=== PATIENT | female | born 2005 | race Caucasian/White ===

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

== ENCOUNTER 2023-07-03 15:37 | Emergency (ER) | payer OTHER, SELFPAY ==
[2023-07-03 15:39] VITALS: BP 115/74; PULSE 78; RESP 16; TEMP 36; O2SAT 99; BMI 19.9
--- NOTE | 2023-07-03 15:49 | RAD_ITS ---
INDICATION: injury EXAMINATION/TECHNIQUE: X-RAY - RIGHT XR Tibia/Fibula 2 Views COMPARISON: None. FINDINGS: No acute fracture or malalignment. No blastic or lytic lesions. No degenerative changes are seen. The soft tissues are unremarkable. RAD/Tibia & Fibula 2 Views IMPRESSION: No acute radiographic abnormalities. Electronically Signed: Marquise Garcia MD at 17:24 EST ,
--- NOTE | 2023-07-03 15:50 | RAD_ITS ---
INDICATION: injury EXAMINATION/TECHNIQUE: X-RAY - LEFT XR Ankle Min 3 Views COMPARISON: None. FINDINGS: No acute fracture or malalignment. No blastic or lytic lesions. No degenerative changes are seen. The soft tissues are unremarkable. RAD/Ankle min 3 Views IMPRESSION: No acute radiographic abnormalities. Electronically Signed: Marquise Garcai MD at 17:24 EST ,
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
--- OUTSIDE RECORDS SUMMARY | 2023-07-03 16:14 | XMS RPT_ITS | CCD ---
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 encounter (statuses as of 11/10/2021) [place] [address]22-2014 History of Past illness Narrative* Problem Noted Date Resolved Date UTI (lower urinary tract infection) 08/15/2013 03/05/2016 Failure to thrive in childhood 02/18/200504/29/2013 documented as of this encounter (statuses as of 11/27/2021) [place] [address]2014 History of Past illness Narrative* Problem Noted Date Resolved Date UTI (lower urinary tract infection) 08/15/2013 03/05/2016 Failure to thrive in childhood 02/18/200504/29/2013 documented as of this encounter (statuses as of 01/01/2022) [address]22-2014 History of Past illness Narrative* Problem Noted Date Resolved Date UTI (lower urinary tract infection) 08/15/2013 03/05/2016 Failure to thrive in childhood 02/18/2005 1 04/29/2013 documented as of this encounter (statuses as of 01/06/2022) [address]22-2014 History of Past illness Narrative* Problem Noted Date Resolved Date UTI (lower urinary tract infection) 08/15/2013 03/05/2016 Failure to thrive in childhood 02/18/2005 1 04/29/2013 documented as of this encounter (statuses as of 01/27/2022) [address]22-2014 History of Past illness Narrative* Problem Noted Date Resolved Date UTI (lower urinary tract infection) 08/15/2013 03/05/2016 Failure to thrive in childhood 02/18/2005 1 04/29/2013 documented as of this encounter (statuses as of 02/26/2022) [address]22-2014 History of Past illness Narrative* Problem Noted Date Resolved Date UTI (lower urinary tract infection) 08/15/2013 03/05/2016 Failure to thrive in childhood 02/18/200504/29/2013 documented as of this encounter (statuses as of 02/26/2022) [address]22-2014 History of Past illness Narrative* Problem Noted Date Resolved Date UTI (lower urinary tract infection) 08/15/2013 03/05/2016 Failure to thrive in childhood 02/18/200504/29/2013 documented as of this encounter (statuses as of 05/04/2022) [address]22-2014 History of Past illness Narrative* Problem Noted Date Resolved Date UTI (lower urinary tract infection) 08/15/2013 03/05/2016 Failure to thrive in childhood 02/18/200504/29/2013 documented as of this encounter (statuses as of 06/26/2022) [address]22-2014 History of Past illness Narrative* Problem Noted Date Resolved Date UTI (lower urinary tract infection) 08/15/2013 03/05/2016 Failure to thrive in childhood 02/18/200504/29/2013 documented as of this encounter (statuses as of 2022) [address]22-2014 History of Past illness Narrative* Problem Noted Date Resolved Date UTI (lower urinary tract infection) 08/15/2013 03/05/2016 Failure to thrive in childhood 02/18/200504/29/2013 documented as of this encounter (statuses as of 08/13/2022) [address]22-2014 History of Past illness Narrative* Problem Noted Date Resolved Date UTI (lower urinary tract infection) 08/15/2013 03/05/2016 Failure to thrive in childhood 02/18/2005 1 04/29/2013 documented as of this encounter (statuses as of 09/30/2022) [address]22-2014 History of Past illness Narrative* Problem Noted Date Diagnosed Date Resolved Date UTI (lower urinary tract infection) 08/15/2013 03/05/2016 Failure to thrive in childhood 02/18/2005 02/27/2014 documented as of this encounter (statuses as of 04/06/2023) [address]22-2014 History of Past illness Narrative* Problem Noted Date Diagnosed Date Resolved Date UTI (lower urinary tract infection) 08/15/2013 03/05/2016 Failure to thrive in childhood 02/18/2005 02/27/2014 documented as of this encounter (statuses as of 06/03/2023) [address]22-2014 History of Past illness Narrative* Problem Noted Date Diagnosed Date Resolved Date UTI (lower urinary tract infection) 08/15/2013 03/05/2016 Failure to thrive in childhood 02/18/2005 02/27/2014 documented as of this encounter (statuses as of 06/16/2023) [address]22-2014 History of Past illness Narrative* Problem Noted Date Diagnosed Date Resolved Date UTI (lower urinary tract infection) 08/15/2013 03/05/2016 Failure to thrive in childhood 02/18/2005 02/27/2014 documented as of this encounter (statuses as of 06/16/2023) [address]22-2014 History of Past illness Narrative* Problem Noted Date Diagnosed Date Resolved Date UTI (lower urinary tract infection) 08/15/2013 03/05/2016 Failure to thrive in childhood 02/18/2005 02/27/2014 documented as of this encounter (statuses as of 06/24/2023) [facility] No data available for this section [facility] Evaluation note* Diagnosis Patellar instability of right knee- Primary Other joint derangement, not elsewhere classified, lower leg Altered gait Abnormality of gait H/O fracture of patella Personal history of traumatic fracture Disorder of bone Disorder of bone and cartilage, unspecified Chronic pain of right knee Swelling of joint of right knee Effusion of lower leg joint [facility] Disorder of bone Disorder of bone and cartilage, unspecified Patellar instability of right knee Other joint derangement, not elsewhere classified, lower leg Altered gait Abnormality of gait H/O fracture of patella Personal history of traumatic fracture Chronic pain of right knee Swelling of joint of right knee Effusion of lower leg joint [facility] Diagnosis Patellar instability of right knee- Primary Other joint derangement, not elsewhere classified, lower leg Altered gait Abnormality of gait H/O fracture of patella Personal history of traumatic fracture [facility]* Diagnosis Attention deficit hyperactivity disorder (ADHD), combined type [facility] Diagnosis Depression with anxiety- Primary Dysthymic disorder Attention deficit hyperactivity disorder (ADHD), combined type Chondromalacia of right patella Chondromalacia of patella [facility] Diagnosis Depression with anxiety- Primary Dysthymic disorder Attention deficit hyperactivity disorder (ADHD), combined type Chondromalacia of right patella Chondromalacia of patella Severe menstrual cramps Menorrhagia with irregular cycle Excessive or frequent menstruation [facility] Diagnosis Dysmenorrhea- Primary General counseling and advice for contraceptive management Other general counseling and advice for contraceptive management Screen for STD (sexually transmitted disease) Screening examination for venereal disease [facility] Diagnosis Insertion of implantable subdermal contraceptive- Primary Screening for STD (sexually transmitted disease) Screening examination for venereal disease [facility] Diagnosis Atypical nevus of right thigh- Primary Superficial spreading melanoma (HCC) Melanoma of skin, site unspecified [facility] Diagnosis Depression with anxiety- Primary Dysthymic disorder Attention deficit hyperactivity disorder (ADHD), combined type Superficial spreading melanoma (HCC) Melanoma of skin, site unspecified [facility]* Diagnosis Attention deficit hyperactivity disorder (ADHD), combined type [facility]* Diagnosis Sore throat- Primary Acute pharyngitis documented in this encounter [facility] note* Diagnosis Sore throat- Primary Acute pharyngitis Fatigue, unspecified type Other non-recurrent acute nonsuppurative otitis media of left ear documented in this encounter [facility] note* Diagnosis Depression with anxiety Dysthymic disorder documented in this encounter [facility] note* Diagnosis Depression with anxiety- Primary Dysthymic disorder Cyst near coccyx Pilonidal cyst without mention of abscess documented in this encounter [facility] note* Diagnosis Depression with anxiety- Primary Dysthymic disorder Major depressive disorder with current active episode, unspecified depression episode severity, unspecified whether recurrent Attention deficit hyperactivity disorder (ADHD), combined type documented in this encounter [facility] note* Diagnosis Attention deficit hyperactivity disorder (ADHD), combined type documented in this encounter [facility] note* Diagnosis Depression with anxiety Dysthymic disorder Major depressive disorder with current active episode, unspecified depression episode severity, unspecified whether recurrent documented in this encounter [facility] Discharge instructions No data available for this section [facility] Reason for referral (narrative)* Outpatient Procedure (Routine) - Pending Review Specialty Diagnoses / Procedures Referred By Trav ponce Referred To Contact [facility] Diagnoses Dysmenorrhea General counseling and advice for contraceptive management Procedures NEXPLANON INSERTION ETONOGESTREL IMPLANT SYSTEM INSERT DRUG IMPLANT DEVICE Karen Young APRN.CNP [address] [place] [address] [place] [address] Referral ID Status Reason Start Date Expiration Date Visits Requested Visits Authorized [id number] Pending Review Auto-Generat ed Referral 01/06/2022 01/06/2023 1 1 [facility] Outpatient Procedure (Routine) - Pending Review Specialty Diagnoses / Procedures Referred By Trav ponce Referred To Contact [facility] Diagnoses Insertion of implantable subdermal contraceptive Procedures NEXPLANON INSERTION ETONOGESTREL IMPLANT SYSTEM INSERT DRUG IMPLANT DEVICE Karen Young APRN.CNP [address] [place] [address] [facility] [address] [place] [address] Referral ID Status Reason Start Date Expiration Date Visits Requested Visits Authorized [id number] Pending Review Auto-Generat ed Referral 01/27/2022 01/27/2023 1 1 [facility] for visit Narrative* Outpatient Procedure (Routine) - Closed Specialty Diagnoses / Procedures Referred By Trav ponce Referred To Contact [facility] Diagnoses Dysmenorrhea General counseling and advice for contraceptive management Encounter for initial prescription of implantable subdermal contraceptive Encounter for surveillance of implantable subdermal contraceptive Procedures NEXPLANON INSERTION ETONOGESTREL IMPLANT SYSTEM INSERT DRUG IMPLANT DEVICE REMOVAL NON-BIODEGRADABLE DRUG DELIVERY IMPLANT Karen Young APRN.POWERHOUSE MECHANIC HELPER [address] [place] [address] [facility] [address] [place] [address] Referral ID Status Reason Start Date Expiration Date V isits Requested Visits Authorized [id number] Closed Auto-Generate d Referral 01/14/2022 04/25/2022 1 1 [facility] Reason for Referral Specialty Diagnoses / Procedures Referred By Trav ponce Referred To Contact [facility] Diagnoses Disorder of bone Patellar instability of right knee Altered gait H/O fracture of patella Chronic pain of right knee Swelling of joint of right knee Procedures MRI KNEE WO IVCON RT MRI ANY JT LOWER EXTREM W/O CONTRAST MATRL Oumou Laureano APRN.POWERHOUSE MECHANIC HELPER [address] [place] [address] [facility] Referral ID Status Reason Start Date Expiration Date V isits Requested Visits Authorized [id number] Closed Auto-Generate d Referral 09/11/2021 10/11/2022 1 1 Specialty Diagnoses / Procedures Referred By Trav ponce Referred To Contact [facility] Diagnoses Disorder of bone Patellar instability of right knee Altered gait H/O fracture of patella Chronic pain of right knee Swelling of joint of right knee Procedures CONSULT TO PHYSICAL THERAPY PHYSICAL THERAPY EVALUATION HIGH COMPLEX 45 MINS Oumou Laureano APRN.VERÓNICA [address] [place] [address] [facility] [address] [address] Referral ID Status Reason Start Date Expiration Date Visits Requested Visits Authorized [id number] Authorized Auto-Generat ed Referral 09/11/2021 04/25/2022 30 30 Specialty Diagnoses / Procedures Referred By Contac t Referred To Contact XR IMAGING Diagnoses Disorder of bone Patellar instability of right knee Altered gait H/O fracture of patella Chronic pain of right knee Swelling of joint of right knee Procedures XR KNEE INJURY 4V AP/LAT/OBLS RIGHT RADIOLOGIC EXAM KNEE COMPLETE 4/MORE VIEWS Oumou Laureano APRN.POWERHOUSE MECHANIC HELPER [address] [place] [address] Xr Imaging Referral ID Status Reason Start Date Expiration Date V isits Requested Visits Authorized [id number] Closed Auto-Generate d Referral 09/11/2021 10/11/2022 1 1 Specialty Diagnoses / Procedures Referred By Contac t Referred To Contact Orthopedics Diagnoses Patellar instability of right knee Altered gait H/O fracture of patella Procedures CONSULT TO ORTHOPAEDICS OFFICE/OUTPATIENT [facility] 60-74 MINUTES Yaw Garcia, SLURRY WORKER.POWERHOUSE MECHANIC HELPER [address] [place] [address] Referral ID Status Reason Start Date Expiration Date Visits Requested Visits Authorized [id number] Pending Review PCP Requested Referral 09/17/2021 09/17/2022 1 1 Specialty Diagnoses / Procedures Referred By Contac t Referred To Contact Gynecology Diagnoses Severe menstrual cramps Menorrhagia with irregular cycle Procedures CONSULT TO GYNECOLOGY OFFICE/OUTPATIENT [facility] MDM 60-74 MINUTES Oumou Laureano, SLURRY WORKER.POWERHOUSE MECHANIC HELPER [address] [place] [address] Referral ID Status Reason Start Date Expiration Date Visits Requested Visits Authorized [id number] Pending Review PCP Requested Referral Auto-Generate d Referral 12/25/2021 12/25/2022 1 1 Specialty Diagnoses / Procedures Referred By Contac t Referred To Contact Diagnoses Atypical nevus of right thigh Superficial spreading melanoma (HCC) Procedures REFERRAL DERMATOLOGY SURGERY OFFICE/OUTPATIENT [facility] MDM 60-[address] MINUT[address] [place], DO [address] [place] [address] Referral ID Status Reason Start Date Expiration Date Visits Requested Visits Authorized [id number] Pending Review PCP Requested Referral 02/25/2022 02/25/2023 1 1 Medications Administered Section Inactive Administered Medications - up to 3 most recent administrations Medication Order MAR Action Action Date Dose Rate Site etonogestrel subdermal implant 68 mg (NEXPLANON) 68 mg, SUBDERMAL, ONCE (UP TO 30 DAYS AMB), 1 dose, On Wed01/27/22 at 1000, Hazardous Potential Reproductive Risk Drug: Use appropriate PPE. Must be inserted subdermally in the upper arm by a trained healthcare provider. Given 01/27/2022 9:44 AM EDT 68 mg Arm, Left Summary Purpose Family History No Family History Records FoundNo Family History Records Found Advance Directives No Advanced Directives Records FoundNo Advanced Directives Records Found Additional Source Comments Source Comments (unrecognize d section and content) In the event this informatio n is protected by the Federal Confidentiality of Alcohol and Drug Abuse Patient Records regulations: The Federal rules restrict any use of the information to criminally investigate or prosecute any alcohol or drug abuse patient.[facility] the event this information is protected by the Federal Confidentiality of Alcohol and Drug Abuse Patient Records regulations: The Federal rules restrict any use of the information to criminally investigate or prosecute any alcohol or drug abuse patient.[facility] the event this information is protected by the Federal Confidentiality of Alcohol and Drug Abuse Patient Records regulations: The Federal rules restrict any use of the information to criminally investigate or prosecute any alcohol or drug abuse patient.[facility] the event this information is protected by the Federal Confidentiality of Alcohol and Drug Abuse Patient Records regulations: The Federal rules restrict any use of the information to criminally investigate or prosecute any alcohol or drug abuse patient.[facility] the event this information is protected by the Federal Confidentiality of Alcohol and Drug Abuse Patient Records regulations: The Federal rules restrict any use of the information to criminally investigate or prosecute any alcohol or drug abuse patient.[facility] the event this information is protected by the Federal Confidentiality of Alcohol and Drug Abuse Patient Records regulations: The Federal rules restrict any use of the information to criminally investigate or prosecute any alcohol or drug abuse patient.[facility] the event this information is protected by the Federal Confidentiality of Alcohol and Drug Abuse Patient Records regulations: The Federal rules restrict any use of the information to criminally investigate or prosecute any alcohol or drug abuse patient.[facility] the event this information is protected by the Federal Confidentiality of Alcohol and Drug Abuse Patient Records regulations: The Federal rules restrict any use of the information to criminally investigate or prosecute any alcohol or drug abuse patient.[facility] the event this information is protected by the Federal Confidentiality of Alcohol and Drug Abuse Patient Records regulations: The Federal rules restrict any use of the information to criminally investigate or prosecute any alcohol or drug abuse patient.[facility] the event this information is protected by the Federal Confidentiality of Alcohol and Drug Abuse Patient Records regulations: The Federal rules restrict any use of the information to criminally investigate or prosecute any alcohol or drug abuse patient.[facility] the event this information is protected by the Federal Confidentiality of Alcohol and Drug Abuse Patient Records regulations: The Federal rules restrict any use of the information to criminally investigate or prosecute any alcohol or drug abuse patient.[facility] the event this information is protected by the Federal Confidentiality of Alcohol and Drug Abuse Patient Records regulations: The Federal rules restrict any use of the information to criminally investigate or prosecute any alcohol or drug abuse patient.[facility] the event this information is protected by the Federal Confidentiality of Alcohol and Drug Abuse Patient Records regulations: The Federal rules restrict any use of the information to criminally investigate or prosecute any alcohol or drug abuse patient.[facility] the event this information is protected by the Federal Confidentiality of Alcohol and Drug Abuse Patient Records regulations: The Federal rules restrict any use of the information to criminally investigate or prosecute any alcohol or drug abuse patient.[facility] the event this information is protected by the Federal Confidentiality of Alcohol and Drug Abuse Patient Records regulations: The Federal rules restrict any use of the information to criminally investigate or prosecute any alcohol or drug abuse patient.[facility] the event this information is protected by the Federal Confidentiality of Alcohol and Drug Abuse Patient Records regulations: The Federal rules restrict any use of the information to criminally investigate or prosecute any alcohol or drug abuse patient.[facility] Center[facility] the event this information is protected by the Federal Confidentiality of Alcohol and Drug Abuse Patient Records regulations: The Federal rules restrict any use of the information to criminally investigate or prosecute any alcohol or drug abuse patient.[facility] Center[facility] the event this information is protected by the Federal Confidentiality of Alcohol and Drug Abuse Patient Records regulations: The Federal rules restrict any use of the information to criminally investigate or prosecute any alcohol or drug abuse patient.[facility] the event this information is protected by the Federal Confidentiality of Alcohol and Drug Abuse Patient Records regulations: The Federal rules restrict any use of the information to criminally investigate or prosecute any alcohol or drug abuse patient.[facility] the event this information is protected by the Federal Confidentiality of Alcohol and Drug Abuse Patient Records regulations: The Federal rules restrict any use of the information to criminally investigate or prosecute any alcohol or drug abuse patient.[facility] Reason for Visit (unrecogniz ed section and content) Specialty Diagnoses / Procedures Referred By Trav t Referred To Contact MR IMAGING Diagnoses Disorder of bone Patellar instability of right knee Altered gait H/O fracture of patella Chronic pain of right knee Swelling of joint of right knee Procedures MRI KNEE WO IVCON RT MRI ANY JT LOWER EXTREM W/O CONTRAST EDIEL Oumou Laureano, CARLOS ALBERTO.POWERHOUSE MECHANIC HELPER [address] [place] [address] Mr Imaging Referral ID Status Reason Start Date Expiration Date V isits Requested Visits Authorized [id number] Closed Auto-Generate d Referral 09/11/2021 10/11/2022 1 1 Reason Comments Results Reason Onset Date Comments Refill Request 11/10/2021 Reason Comments Medication Follow-up Reason Comments Medication Follow-up Reason Comments Menstrual Problem Specialty Diagnoses / Procedures Referred By Trav ponce Referred To Contact Gynecology Diagnoses Severe menstrual cramps Menorrhagia with irregular cycle Procedures CONSULT TO GYNECOLOGY OFFICE/OUTPATIENT NEW HIGH MDM 60-74 MINUTES Oumou Laureano, SLURRY WORKER.POWERHOUSE MECHANIC HELPER [address] [place] [address] Referral ID Status Reason Start Date Expiration Date Visits Requested Visits Authorized [id number] Pending Review PCP Requested Referral Auto-Generate d Referral 12/25/2021 12/25/2022 1 1 Reason Comments Orders Reason Comments Sore Throat KIM x2 days Reason Comments Sore Throat Had a strep test ran Wednesday at urgent care negative 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 White spots on tonsils glands swollen no fever or chills, Reason Comments Question Reason Comments Med Change Request Reason Comments Cyst On tailbone Reason Comments Depression Reason Comments Medication Problem Care Teams (unrecognized sec tion and content) [employer] Relationship Specialty Start Date End Date Oumou Laureano, SLURRY WORKER.POWERHOUSE MECHANIC HELPER [address] [place] [address] PCP - General Family Practice 01/27/21 [employer] Relationship Specialty Start Date End Date Oumou Laureano, SLURRY WORKER.POWERHOUSE MECHANIC HELPER [address] [place] [address] PCP - General Family Practice 01/27/21 [employer] Relationship Specialty Start Date End Date Oumou Laureano, SLURRY WORKER.POWERHOUSE MECHANIC HELPER [address] [place] [address] PCP - General Family Practice 01/27/21 [employer] Relationship Specialty Start Date End Date Oumou Laureano, SLURRY WORKER.POWERHOUSE MECHANIC HELPER [address] [place] [address] PCP - General Family Practice 01/27/21 [employer] Relationship Specialty Start Date End Date Oumou Laureano, SLURRY WORKER.POWERHOUSE MECHANIC HELPER [address] [place] [address] PCP - General Family Practice 01/27/21 [employer] Relationship Specialty Start Date End Date GeorgiOumou, SLURRY WORKER.POWERHOUSE MECHANIC HELPER [address] [place] [address] PCP - General Family Practice 01/27/21 [employer] Relationship Specialty Start Date End Date GeorgiOumou, SLURRY WORKER.POWERHOUSE MECHANIC HELPER [address] [place] [address] PCP - General Family Medicine 01/27/21 [employer] Relationship Specialty Start Date End Date GeorgiOumou, SLURRY WORKER.POWERHOUSE MECHANIC HELPER [address] [place] [address] PCP - General Family Medicine 01/27/21 [employer] Relationship Specialty Start Date End Date GeorgiOumou, SLURRY WORKER.POWERHOUSE MECHANIC HELPER [address] [place] [address] PCP - General Family Medicine 01/27/21 [employer] Relationship Specialty Start Date End Date Oumou, SLURRY WORKER.POWERHOUSE MECHANIC HELPER [address] [place] [address] PCP - General Family Medicine 01/27/21 [employer] Relationship Specialty Start Date End Date GeogriOumou, SLURRY WORKER.POWERHOUSE MECHANIC HELPER [address] [place] [address] PCP - General Family Medicine 01/27/21 [employer] Relationship Specialty Start Date End Date GeorgiOumou, SLURRY WORKER.POWERHOUSE MECHANIC HELPER [address] [place] [address] PCP - General Family Medicine 01/27/21 [employer] Relationship Specialty Start Date End Date GeorgiOumou, SLURRY WORKER.POWERHOUSE MECHANIC HELPER [address] [place] [address] PCP - General Family Medicine 01/27/21 [employer] Relationship Specialty Start Date End Date Oumou Laureano, SLURRY WORKER.POWERHOUSE MECHANIC HELPER [address] [place], [place] [id number] PCP - General Family Medicine 01/27/21 [employer] Relationship Specialty Start Date End Date Georig Oumou, SLURRY WORKER.POWERHOUSE MECHANIC HELPER [address] [place], [place] [address] PCP - General Family Medicine 01/27/21 [employer] Relationship Specialty Start Date End Date GeorgiOumou, SLURRY WORKER.POWERHOUSE MECHANIC HELPER [address] [place], [place] [address] PCP - General Family Medicine 01/27/21 Care Team (unrecognized sect ion and content) Care Team Personnel Name: LAKE FABIAN DO Member Role: Primary Care Physician Address: Address: [address] [place] [address]- Care Team Related Persons Name: ELIZABETH JULIEN Address: [address] [place] [address] Name: ELIZABETH JULIEN Address: [place] [address] INFORMATION SOURCE (unrecogn ized section and content) DATE CREATED AUTHOR AUTHOR'S POLINA ATION 06/23/2023 [facility] FOR RECORDS PERTAINING TO PATIENTS WHO ARE OR HAVE BEEN ENROLLED IN A CHEMICAL DEPENDENCY/SUBSTANCEABUSE PROGRAM, SOME INFORMATION MAY BE OMITTED. This clinical summary was aggregated from multiple sources. Caution should be exercised in using it in the provision of clinical care. This summary normalizes information from multiple sources, and as a consequence, information in this document may materially change the coding, format and clinical context of patient data. In addition, data may be omitted in some cases. CLINICAL DECISIONS SHOULD BE BASED ON THE PRIMARY CLINICAL RECORDS. [employer] provides no warranty or guarantee of the accuracy or completeness of information in this document.
[2023-07-03] MEDS: Naproxen 500 MG Tablet PO (17:21)
[2023-07-03 17:23] VITALS: BP 115/74; PULSE 78; RESP 16; TEMP 36; O2SAT 99
== END 2023-07-03 17:24 | disposition home or self-care (01) ==
PROVIDERS: Emergency Provider Emergency Medicine; PCP Nurse Practitioner Family; Visit Provider Emergency Medicine
DX: S93.401A Sprain of unspecified ligament of right ankle, initial encounter (principal); S93.402A Sprain of unspecified ligament of left ankle, initial encounter; V48.4XXA Person boarding or alighting a car injured in noncollision transport accident, initial encounter; Z79.899 Other long term (current) drug therapy
CPT/HCPCS: 73590; 73610; 99282

== ENCOUNTER 2025-01-27 23:11 | Emergency (ER) | payer OTHER, SELFPAY ==
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
[2025-01-27 23:13] VITALS: BP 105/67; PULSE 76; RESP 16; TEMP 36.4; O2SAT 97; BMI 23.7
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
[2025-01-28 00:11] VITALS: BP 114/72; PULSE 81; RESP 16; O2SAT 99
[2025-01-28 01:00] VITALS: BP 123/70; PULSE 80; RESP 16; O2SAT 99
--- OUTSIDE RECORDS SUMMARY | 2025-01-28 01:28 | XMS RPT_ITS | CCD ---
Author Organization [facility] Care Team Providers Care Sprinkler Inspector Name Role Phone Ginger PRODUCT FINISHER.VERÓNICA, [facility] Primary Care Provider LAKE HUNT DO Primary Care Physician [facility] PRODUCT FINISHER.CRAWLER TRACTOR OPERATOR, [facility] Primary Care Provider [facility] Primary Care Physicia n [facility] Primary Care Unava ilestefany GUZMAN PA-C, MODESTA Attending Unavailable REUBEN TREVIÑO MD Attending Unavailable LAKE HUNT DO Primary Care Unavailable Buffy Marquez Attending Unavailable Ginger MUSHROOM GROWING SUPERVISOR, [facility] Primary Care Unavailable [facility] PRODUCT FINISHER.CRAWLER TRACTOR OPERATOR, [facility] Primary Care Provider Audra WYATT MD, Arley Hadley Primary Care Provider Ginny vailable John PRODUCT FINISHER.Leida SANCHES Unavailable [place] Hunt DO Unavailable [phone] JOVITA ALVAREZ Attending Unavailable GINGER, RACHANA Primary Care Unavailable RACHANA MILES Referring Unavailable GINGER, RACHANA Primary Care Unavailable GINGERRACHANA Attending Unavailable GINGER, RACHANA Primary Care Unavailable GINGER, RACHANA Primary Care Unavailable RUPINDER IRVIN Attending Unavailable Medications Current Medications Medication Drug Class(es) [...] days. 20 capsule 0 2022 07/09/2022 Active Comment on above: Take 1 capsule by [facility] twice daily for 10 days. amoxicillin 875 mg / clavulanate 125 mg oral tablet (1 source) Penicillin-class Antibacterial Start: 09-05-2024 End: 09-12-2024 take 1 tablet by mouth twice daily amoxicillin-clavula jessy potassium (AUGMENTIN) 875-125 mg per tablet Take 1 tablet by mouth two times a day for 7 days. 14 tablet 09/05/2024 09/12/2024 Active DULoxetine 60 mg delayed release oral capsule (11 sources) Serotonin and Norepinephrine Reuptake Inhibitor Start: 06-02-2023 End: 08-31-2023 take 1 capsule by mouth once daily DULoxetine (CYMBALTA) 60 mg capsule Indications: Depression with anxiety , Major depressive disorder with current active episode, unspecified depression episode severity, unspecified whether recurrent Take 1 capsule by mouth once daily. 30 capsule 2 06/02/2023 Active Start: 04-29-2023 End: 06-02-2023 take 1 capsule by mouth once daily DULoxetine (CYMBALTA) 30 mg capsule Take 1 capsule by mouth once daily. 30 capsule 1 04/29/2023 06/02/2023 Discontinued Comment on above: Take 1 capsule by [facility] once daily. etonogestrel 68 mg drug implant (20 sources) Progestin Start: 2 End: 5 etonogestrel (NEXPLANON) subdermal implant 68 mg Indications: Insertion of implantable subdermal contraceptive 1 Each by SUBDERMAL route as directed. 1 Each 01/27/2022 01/26/2025 Active Comment on above: 1 Each by SUBDERMAL route as directed. FLUoxetine 20 mg oral capsule (15 sources) Serotonin Reuptake Inhibitor Start: 3 take 1 capsule by mouth once daily FLUoxetine (PROZAC) 20 mg capsule Indications: Depression with anxiety Take 1 capsule by mouth once daily. 30 capsule 0 04/06/2023 Active Start: 04-06-2023 [facility] FLUoxetine 10 mg tablet Indications: Depression with anxiety Take 1 tablet by mouth once daily. 30 tablet 0 04/06/2023 Active Start: 09-02-2022 End: 04-06-2023 take 2 capsules by mouth once daily FLUoxetine (PROZAC) 20 mg capsule Indications: Depression with anxiety TAKE 2 CAPSULES BY MOUTH EVERY DAY 90 capsule 1 09/29/2022 04/06/2023 Discontinued Start: 12-25-2021 End: 02-18-2022 take 1 capsule by mouth once daily FLUoxetine (PROZAC) 20 mg capsule Indications: Depression with anxiety TAKE 1 CAPSULE BY MOUTH ONCE DAILY 90 capsule 1 01/19/2022 Active Start: 11-24-2021 End: 12-25-2021 take 1 capsule by mouth once daily FLUoxetine (PROZAC) 10 mg capsule Indications: Depression with anxiety Take 1 capsule by mouth once daily. 30 capsule 1 11/24/2021 12/25/2021 Discontinued Comment on above: Take 1 capsule by mo uth once daily. TAKE 1 CAPSULE BY MO UTH ONCE DAILY TAKE 2 CAPSULES BY M OUTH EVERY DAY Take 2 capsules by m outh once daily. Take 1 tablet by juan once daily. 24 hr guanFACINE 1 mg extended release oral tablet (1 source) Central alpha-2 Adrenergic Agonist Start: take 1 tablet by mouth every twenty-four hours at bedtime Guanfacine (Intuniv) 1 MG tablet extended release 24 hr Active 1 MG PO AT BEDTIME May 25, 2013 12:00am 9 hr methylphenidate 1.11 mg/hr transdermal system (1 source) Central Nervous System Stimulant Start: Methylphenidate (Daytrana) 1 EACH patch 24 hour Active 1 EACH TD DAILY May 25, 2013 12:00am naproxen 500 mg oral tablet (1 source) Nonsteroidal Anti-inflammatory Drug Start: take 1 tablet by mouth twice daily Naproxen (Naprosyn) 500 mg tablet Active 500 MG PO TWICE A DAY July 03, 2023 12:00am phenazopyridine hydrochloride 200 mg oral tablet (1 source) Start: take 1 tablet by mouth three times daily Phenazopyridine (Pyridium) 200 mg tablet Active 200 MG PO THREE TIMES A DAY November 06, 2020 11:00pm sulfamethoxazole 800 mg / trimethoprim 160 mg oral tablet (3 sources) Dihydrofolate Reductase Inhibitor Antibacterial, Sulfonamide Antimicrobial Start: End: 023 take 1 tablet by mouth twice daily sulfamethoxazole-trim ethoprim (BACTRIM DS) 800-160 mg per tablet Indications: Cyst near coccyx Take 1 tablet by mouth two times a day for 5 days. 10 tablet 0 04/06/2023 04/11/2023 Active Start: 05-25-2013 take 13 mL by mouth twice daily Sulfamethoxazole-Trimethoprim Active 13 ML PO TWICE A DAY May 25, 2013 12:00am 13ml po bid for 7 days Comment on above: Take 1 tablet by [facility] two times a day for 5 days. Completed/Discontinued Medications Medication Drug Class(es) Dates Sig (Normalized) Sig (Original) lisdexamfetamine dimesylate 30 mg oral capsule (20 sources) Central Nervous System Stimulant Start: 07-07-2021 End: 04-12-2024 take 1 capsule by mouth once daily VYVANSE 30 mg capsule Indications: Attention deficit hyperactivity disorder (ADHD), combined type Take 1 capsule by mouth once daily for 30 days. 30 capsule 06/03/2023 04/12/2024 Discontinued Start: 08-19-2020 End: 01-27-2021 take 1 capsule by mouth once daily lisdexamfetamine (VYVANSE) 30 mg capsule Indications: Attention deficit hyperactivity disorder (ADHD), combined type Take 1 capsule by mouth once daily for 30 days. Do not start before October 18, 2020. 30 capsule 10/18/2020 11/28/2020 Discontinued Comment on above: Take 1 capsule by [facility] once daily for 30 days. Do not start before September 04, 2021. Take 1 capsule by [facility] once daily for 30 days. Do not start before August 06, 2021. Take 1 capsule by [facility] once daily for 57 days. Take 1 capsule by [facility] once daily for 30 days. Take 1 capsule by [facility] once daily for 30 days. Do not start before June 30, 2022. Take 1 capsule by [facility] once daily for 30 days. Do not start before June 03, 2022. meloxicam 15 mg oral tablet (20 sources) Nonsteroidal Anti-inflammatory Drug Start: 10-03-19 End: 04-12-20 24 take 1 tablet by mouth once daily meloxicam (MOBIC) 15 mg tablet Indications: Chondromalacia of right patella Take 1 tablet by mouth once daily. 30 tablet 2 12/25/2021 04/12/2024 Discontinued Comment on above: Take 1 tablet by juan th once daily. multivitamin tablet (20 sources) Start: 12-17-19 12 End: 04-12-20 24 take 1 tablet by mouth once daily multivitamin tablet Take 1 tablet by mouth once daily. 0 12/17/2011 04/12/2024 Discontinued Start: 12-17-2011 take 1 tablet by juan th once daily multivitamin tablet Take 1 tablet by mouth once daily. 0 12/17/2011 Active Comment on above: Take 1 tablet by juan th once daily. Problems Active Problems Problem Classification Problem Date Documented Date Episodic/Chronic Anxiety disorders (11 sources) Mixed anxiety and depressive disorder; Translations: [Other specified anxiety disorders] Onset: 04-12-2024 Chronic Attention-deficit, conduct, and disruptive behavior disorders (20 sources) Attention deficit hyperactivity disorder; Translations: [Attention-deficit hyperactivity disorder, unspecified type] Onset: 12-08-2010 12-08-2010 Chronic Attention-deficit, conduct, and disruptive behavior disorders (8 sources) Attention deficit hyperactivity disorder, combined type; Translations: [Attention-deficit hyperactivity disorder, combined type] Chronic Immunizations and screening for infectious disease (5 sources) Patient encounter status; Translations: [Encounter for screening for infections with a predominantly sexual mode of transmission] Episodic Joint disorders and dislocations; trauma-related (2 sources) Chondromalacia of right patella; Translations: [Chondromalacia patellae, right knee] Chronic Malaise and fatigue (1 source) Fatigue; Translations: [Other fatigue] Episodic Melanomas of skin (2 sources) Superficial spreading malignant melanoma of skin; Translations: [Malignant melanoma of skin, unspecified] Chronic Menstrual disorders (3 sources) Dysmenorrhea; Translations: [Dysmenorrhea, unspecified] Chronic Mood disorders (6 sources) Major depressive disorder; Translations: [Major depressive disorder, single episode, unspecified] Onset: 04-12-2024 06-02-2023 Chronic Other ear and sense organ disorders (1 source) Impacted cerumen of bilateral ears; Translations: [Impacted cerumen, bilateral] 09-05-2024 Episodic Other ear and sense organ disorders (1 source) Impacted cerumen, bilateral; Translations: [Bilateral impacted cerumen] Onset: 09-05-2024 Episodic Other injuries and conditions due to external causes (1 source) Unspecified injury of unspecified lower leg, initial encounter; Translations: [Unspecified injury of unspecified lower leg, initial encounter] Onset: 09-17-2023 Episodic Other injuries and conditions due to external causes (1 source) Injury of right knee; Translations: [Unspecified injury of right lower leg, initial encounter] 09-24-2020 Episodic Other nervous system disorders (1 source) Other chronic pain; Translations: [Chronic bilateral thoracic back pain] Onset: 04-12-2024 Chronic Other upper respiratory infections (3 sources) Sore throat symptom; Translations: [Acute pharyngitis, unspecified] Episodic Otitis media and related conditions (2 sources) Acute secretory otitis media; Translations: [Other acute nonsuppurative otitis media, left ear] Episodic Sprains and strains (1 source) Sprain of ankle; Translations: [Sprain of unspecified ligament of unspecified ankle, initial encounter] 07-03-2023 Episodic Substance-related disorders (1 source) Marijuana user; Translations: [Cannabis use, unspecified, uncomplicated] 07-26-2024 Episodic Unclassified (1 source) Acute midline low back pain without sciatica; Translations: [Acute midline low back pain without sciatica] Onset: 04-12-2024 Past or Other Problems Problem Classification Problem Date Documented Da te Episodic/Chronic Abdominal pain (2 sources) Right flank pain; Translations: [Unspecified abdominal pain] Onset: 04-12-2024 04-12-2024 Episodic Other and unspecified benign neoplasm (8 sources) Benign neoplasm of skin of lower limb; Translations: [Melanocytic nevi of right lower limb, including hip] Onset: 02-16-2022 Episodic Other and unspecified benign neoplasm (12 sources) Dysplastic nevus of skin of right [...] (healed) traumatic fracture] Onset: 09-16-2021 Episodic Other nervous system disorders (20 sources) [...] [Effusion, right knee] Onset: 09-16-2021 Episodic Other nutritional; endocrine; and metabolic disorders (8 sources) Pediatric failure to thrive; Translations: [Failure to thrive (child)] Onset: 02-18-2005 Resolved: 02-27-2014 02-27-2014 Episodic Residual codes; unclassified (20 sources) Insomnia; Translations: [Insomnia, unspecified] Onset: 05-12-2013 05-12-2013 Episodic Skin and subcutaneous tissue infections (3 sources) Cyst ; Translations: [Pilonidal cyst without abscess] Onset: 04-12-2024 04-06-2023 Episodic Spondylosis; intervertebral disc disorders; other back problems (5 sources) Acute low back pain; Translations: [Acute midline low back pain without sciatica] Onset: 04-12-2024 04-12-2024 Episodic Urinary tract infections (9 sources) Urinary tract infectious disease; Translations: [Urinary tract infection, site not specified] Onset: 08-15-2013 Resolved: 03-05-2016 11-07-2020 Episodic Results Test Name Value Interpretation Reference Range Facility [facility] 09-05-2024 CNOV Office Visit (UCWSTR ) NURY OLSEN ([id number]) 1 F Date Time Provider Department 09/05/24 6:15 PM RUPINDER IRVIN [facility] During your visit today, we recorded the following information about you: Temperature Pulse Respiration Blood pressure 98.7 degrees 56/minute 20/minute 118/74 Weight Last Period 64 kg 08/23/24 Rupinder Irvin APRN.CRAWLER TRACTOR OPERATOR 09/05/2024 6:54 PM Signed [facility] Subjective Nury Javed is a 19 year old female. Patient presents with: Ear Problem: L ear pain feels clogged down into jaw x 3 days Bilat ears area impacted with wax 19 year old female with PMH insomnia, ADHD presents for ear complaints. Acute onset 3 days ago Left ear Feels clogged +pain +congestion +cough Denies fever or chills Denies skin rash or lesions. Denies cough Denies SOB The history is provided by the patient. No machinist/machine builder was used. Ear Problem There is pain in both ears. This is a new problem. The current episode started in the past 7 days. The problem occurs constantly. The problem has been gradually worsening. There has been no fever. The pain is at a severity of 5/10. The pain is moderate. Associated symptoms include coughing and rhinorrhea. Pertinent negatives include no abdominal pain, diarrhea, ear discharge, headaches, hearing loss, neck pain, rash, sore throat or vomiting. She has tried nothing for the symptoms. The treatment provided no relief. Her past medical history is significant for hearing loss. There is no history of a chronic ear infection or a tympanostomy tube. PAST MEDICAL HISTORY Diagnosis Date ADHD (attention deficit hyperactivity disorder) 12/08/2010 Insomnia 05/12/2013 NONE PAST SURGICAL HISTORY Procedure Laterality Date NEXPLANON INSERTION Left 01/27/2022 ALLERGIES Patient has no known allergies. MEDICATIONS DULoxetine (CYMBALTA) 60 mg capsule Take 1 capsule by mouth once daily. etonogestrel (NEXPLANON) subdermal implant 68 mg 1 Each by SUBDERMAL route as directed. amoxicillin-clavulanate potassium (AUGMENTIN) 875-125 mg per tablet Take 1 tablet by mouth two times a day for 7 days. FAMILY HISTORY Problem Relation Age of Onset None Mother None Father Social History Tobacco Use Smoking status: Never Smokeless tobacco: Never Vaping Use Vaping status: current everyday user Start date: 01/16/2020 Substances: Nicotine Substance Use Topics Alcohol use: Yes Alcohol/week: 1.0 standard drink of alcohol Types: 1 Cans of Beer (12oz) per week Drug use: Yes Types: Marijuana Comment: vape mostly, twice a day; marijuana cigarette a couple times a week Review of Systems Constitutional: Negative for activity change and appetite change. HENT: Positive for ear pain and rhinorrhea. Negative for ear discharge, hearing loss and sore throat. Eyes: Negative for pain, discharge and itching. Respiratory: Positive for cough. Gastrointestinal: Negative for abdominal pain, diarrhea and vomiting. Musculoskeletal: Negative for neck pain. Skin: Negative for rash. Allergic/Immunologic: Negative for environmental allergies and food allergies. Neurological: Negative for headaches. Hematological: Negative for adenopathy. Does not bruise/bleed easily. Psychiatric/Behavioral: Negative for agitation and behavioral problems. Objective BP 118/74 Pulse (!) 56 Temp 37.1 ?C (98.7 ?F) Resp 20 Wt 64 kg (141 lb 1.5 oz) LMP 08/23/2024 (Exact Date) SpO2 100% Physical Exam Vitals and nursing note reviewed. Constitutional: General: She is not in acute distress. Appearance: Normal appearance. She is normal weight. She is not ill-appearing, toxic-appearing or diaphoretic. HENT: Head: Normocephalic and atraumatic. Right Ear: Ear canal and external ear normal. Left Ear: Ear canal and external ear normal. Ears: Comments: B/L ears with impacted cerumen Nursing staff irrigates (please see their documentation) On re-exam, bilateral cerumen impaction resolves Left TM erythematous and bulging Nose: Congestion present. No rhinorrhea. Mouth/Throat: Mouth: Mucous membranes are moist. Pharynx: Posterior oropharyngeal erythema present. No oropharyngeal exudate. Eyes: General: Right eye: No discharge. Left eye: No discharge. Extraocular Movements: Extraocular movements intact. Conjunctiva/sclera: Conjunctivae normal. Pupils: Pupils are equal, round, and reactive to light. Cardiovascular: Rate and Rhythm: Normal rate and regular rhythm. Pulses: Normal pulses. Heart sounds: Normal heart sounds. No murmur heard. No friction rub. Pulmonary: Effort: Pulmonary effort is normal. No respiratory distress. Breath sounds: Normal breath sounds. No stridor. No wheezing, rhonchi or rales. Chest: Chest wall: No tenderness. Abdominal: General: Abdomen is flat. There is no distension. Palpations: Abd (more content not included)... Normal [facility] CNOVon 07-26-2024 CNOV Office Visit (INTMWS ) PARDEEP LARANURY Blancas ([id number]) 1 F Date Time Provider Department 07/26/24 6:40 PM JOVITA ALVAREZ INTMWS During your visit today, we recorded the following information about you: Temperature Pulse Respiration Blood pressure 98 degrees 64/minute 14/minute 126/84 Weight 59.4 kg Jovita Alvarez APRN.CRAWLER TRACTOR OPERATOR 07/26/2024 6:45 PM Signed We discussed your ADHD and Vyvanse prescription: - You have been off Vyvanse for some times now and are experiencing worsening ADHD symptoms, particularly at work. - I ordered a urine drug test today, which is required before starting a controlled substance. The results should be available within 1-2 days. - I will send a message to your primary care provider, Naty Miles, to inform her of today?s visit and the drug test results. She will manage your Vyvanse prescription. - I recommend scheduling a 1-month follow-up appointment with Naty to ensure continuity of care. We discussed your cold symptoms: - Your symptoms, including sore throat and congestion, are likely due to a cold. - You may use [id number] cold medications to manage your symptoms. - These symptoms should improve within a few days. Jovita Alvarez APRN.CRAWLER TRACTOR OPERATOR 07/26/2024 6:59 PM Signed CC: Patient presents with: Discussion: Restarting vyvanse HPI The patient consented to the use of HomeLight software for draft documentation of the visit consistent with [facility]?s Notice of Privacy Practices. Nury is a 19-year-old female, with a history of ADHD, presenting for a Vyvanse refill. 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 She denies any issues at home related to being off the medication. She is currently taking duloxetine and denies any side effects from Vyvanse when previously taken, stating it was the most effective medication for her ADHD. She also reports a recent onset of cough and congestion, starting a few days ago, initially presenting as a sore throat. Denies fever, chills, SOB, wheezing, headache. She vapes nicotine and smokes marijuana, using a vaping pen about twice a day and smoking a blunt approximately once a week. She has been trying to reduce vaping due to throat irritation. Review of Systems See HPI PAST MEDICAL HISTORY Diagnosis Date ADHD (attention deficit hyperactivity disorder) 12/08/2010 Insomnia 05/12/2013 NONE PAST SURGICAL HISTORY Procedure Laterality Date NEXPLANON INSERTION Left 01/27/2022 ALLERGIES Patient has no known allergies. MEDICATIONS DULoxetine (CYMBALTA) 60 mg capsule Take 1 capsule by mouth once daily. etonogestrel (NEXPLANON) subdermal implant 68 mg 1 Each by SUBDERMAL route as directed. FAMILY HISTORY Problem Relation Age of Onset None Mother None Father Social History Tobacco Use Smoking status: Never Smokeless tobacco: Never Vaping Use Vaping status: current everyday user Start date: 01/16/2020 Substances: Nicotine Substance Use Topics Alcohol use: Yes Alcohol/week: 1.0 standard drink of alcohol Types: 1 Cans of Beer (12oz) per week Drug use: Yes Types: Marijuana Comment: vape mostly, twice a day; marijuana cigarette a couple times a week BP 126/84 Pulse 64 Temp 36.7 ?C (98 ?F) (Temporal) Resp 14 Wt 59.4 kg (130 lb 15.3 oz) LMP 01/23/2022 SpO2 98% Physical Exam Vitals reviewed. Constitutional: Appearance: Normal appearance. HENT: Head: Normocephalic and atraumatic. Nose: Nose normal. Mouth/Throat: Mouth: Mucous membranes are moist. Pharynx: Oropharynx is clear. Eyes: Conjunctiva/sclera: Conjunctivae normal. Cardiovascular: Rate and Rhythm: Normal rate and regular rhythm. Heart sounds: Normal heart sounds. No murmur heard. Pulmonary: Effort: Pulmonary effort is normal. Breath sounds: Normal breath sounds. No wheezing, rhonchi or rales. Lymphadenopathy: Cervical: No cervical adenopathy. Skin: General: Skin is warm and dry. Neurological: Mental Status: She is alert. Psychiatric: Attention and Perception: Attention normal. Mood and Affect: Affect normal. Mood is anxious. Speech: Speech normal. Behavior: Behavior is hyperactive. Thought Content: Thought content normal. Judgment: Judgment normal. Assessment/Plan 1. Attention deficit hyperactivity disorder (ADHD), combined type (F90.2) Previously managed with Vyvanse, which was effective without side effects. Has been off medication for nearly two years, leading to worsening symptoms, particularly at work where focus is critical. - Ordered urine drug screen prior to restarting Vyvanse. - Will communicate with primary care provider, Naty Miles, regarding today's visit and drug test results. - Schedule a follow-up appointment with Naty Miles in one mon (more content not included)... Normal [facility] QUANT TOX PANELon 07-26-2024 3-Wxeycnvnte-9,5-Dimet hyl-3,3-Diphenylpyrrol idine (EDDP) Confirm (U) [Mass/Vol] <25 Normal <25 [facility] Comment on above: Order Comment: Speci men Type: URINE SPECIMEN Ordering Facility: [facility] Address: [address] [place] [address] Result Comment: 7-Pedjboisvv-2,3-kcrgrbbu-3,3-diphenylpyrrolidine (EDDP) is a metabolite of methadone. Performed By: #### U QNTX #### [facility] CLIA [id number] [address] [place] [address] [place] 6-Monoacetylmorphine (6-FELICIA) (U) [Mass/Vol] <5 Normal <5 [facility] Comment on above: Order Comment: Speci men Type: URINE SPECIMEN Ordering Facility: [facility] Address: [address] [place] [address] Result Comment: 6-Mo noacetylmorphine is a metabolite of heroin. Performed By: #### U QNTX #### [facility] CLIA [id number] [address] [place] [address] [place] Amphetamine Confirm (U) [Mass/Vol] <25 Normal <25 [facility] Comment on above: Order Comment: Speci men Type: URINE SPECIMEN Ordering Facility: [facility] Address: [address] [place] [address] Result Comment: Meth ylphenidate does not contain or metabolize to amphetamine. Performed By: #### U QNTX #### [facility] CLIA [id number] [address] [place] [address] [place] Benzoylecgonine Confirm (U) [Mass/Vol] <25 Normal <25 [facility] Comment on above: Order Comment: Speci men Type: URINE SPECIMEN Ordering Facility: [facility] Address: [address] [place] [address] Result Comment: Melvin oylecgonine is a metabolite of cocaine. Performed By: #### U QNTX #### [facility] [place] [id number] [address] [place] [address] [place] Buprenorphine (U) [Mass/Vol] <5 Normal <5 [facility] Comment on above: Order Comment: Speci men Type: URINE SPECIMEN Ordering Facility: [facility] Address: [address] [place] [address] Result Comment: Yisel ents using transdermal formulations of buprenorphine may yield undetectable buprenorphine and norbuprenorphine urine concentrations. Performed By: #### U QNTX #### [facility] IA [id number] [address] [place] [address] [place] Carboxy tetrahydrocannabinol (U) [Mass/Vol] 150 ng/mL High <10 [facility] Comment on above: Order Comment: Speci men Type: URINE SPECIMEN Ordering Facility: [facility] Address: [address] [place] [address] Result Comment: 11-N ml-6-alowvdi-tetrahydrocannabinol (ebdpq-1-bjgaajl-THC) is a metabolite of nmjal-6-kgiqskrscsilcfjgbxtx (THC). Presence of hdeaj-2-uagmjhe-THC is consistent with use of a THC-containing drug. This test does not differentiate between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 pain without sciatica [M54.50] Start: 04-12-2024 End: 04-12-2024 Office outpatient visit 25 minutes Rachana Miles PRODUCT FINISHER.CRAWLER TRACTOR OPERATOR Work Phone: [facility] Comment on above: Acute midline low ba ck pain without sciatica (Primary Dx); Depression with anxiety; Major depressive disorder with current active episode, unspecified depression episode severity, unspecified whether recurrent; Chronic bilateral thoracic back pain; Cyst near tailbone; Right flank pain Start: 04-12-2024 End: 04-12-2024 ambulatory RACHANASRUTHI MILES Facility:[facility] Start: 08-13-2023 Refill Rachana Martinezcami an PRODUCT FINISHER.CRAWLER TRACTOR OPERATOR Work Phone: [facility] Comment on above: Med Change Request Start: 07-03-2023 End: 07-03-2023 Emergency department patient visit [facility] Work Phone: Start: 06-23-2023 Refill Rachana Martinezcami an PRODUCT FINISHER.CRAWLER TRACTOR OPERATOR Work Phone: [facility] Comment on above: Med Change Request Start: 06-16-2023 Refill Rachana Jeanjoaquin an PRODUCT FINISHER.CRAWLER TRACTOR OPERATOR Work Phone: [facility] Comment on above: Med Change Request Start: 06-02-2023 End: 06-02-2023 Patient encounter procedure Rachana Miles PRODUCT FINISHER.CRAWLER TRACTOR OPERATOR Work Phone: [facility] Comment on above: Depression with anxi ety (Primary Dx); Major depressive disorder with current active episode, unspecified depression episode severity, unspecified whether recurrent; Attention deficit hyperactivity disorder (ADHD), combined type Start: 06-02-2023 Telephone encounter Rachana aWshington PRODUCT FINISHER.CRAWLER TRACTOR OPERATOR Work Phone: [facility] Comment on above: Medication Problem Start: 04-06-2023 End: 04-06-2023 Patient encounter procedure Tri Crowder PRODUCT FINISHER.CRAWLER TRACTOR OPERATOR Work Phone: [facility] Comment on above: Depression with anxi ety (Primary Dx); Cyst near coccyx Start: 09-29-2022 Refill Rachana joaquin an PRODUCT FINISHER.CRAWLER TRACTOR OPERATOR Work Phone: [facility] Comment on above: Med Change Request Start: 09-02-2022 End: 09-02-2022 Subsequent hospital visit by physician Pradeep [facility] Work Phone: Radiology Comment on above: Injury of left elbow , subsequent encounter [S59.902D] Start: 08-29-2022 End: 08-29-2022 Emergency department patient visit RACHANA MILES PRODUCT FINISHER-CRAWLER TRACTOR OPERATOR Facility:A Start: 08-29-2022 End: 08-29-2022 Emergency department patient visit MATEO JJ MD [facility] Start: 2022 End: 2022 Patient encounter procedure Leida Lopez CARLOS ALBERTO.CRAWLER TRACTOR OPERATOR Work Phone: [facility] Comment on above: Sore throat (Primary Dx); Fatigue, unspecified type; Other non-recurrent acute nonsuppurative otitis media of left ear Start: 06-26-2022 End: 06-26-2022 Patient encounter procedure Rah Loera MD Work Phone: [facility] Comment on above: Sore throat (Primary Dx) Start: 05-04-2022 Telephone encounter Rachana Washington CARLOS ALBERTO.CRAWLER TRACTOR OPERATOR Work Phone: [facility] Comment on above: Orders Start: 03-17-2022 End: 03-18-2022 ambulatory REUBEN TREVIÑO MD Facility:[facility] Start: 03-17-2022 End: 03-17-2022 Patient encounter procedure REUBEN TREVIÑO MD [facility] Start: 02-26-2022 End: 02-26-2022 Patient encounter procedure Rachana Miles CARLOS ALBERTO.CRAWLER TRACTOR OPERATOR Work Phone: [facility] Comment on above: Depression with anxi ety (Primary Dx); Attention deficit hyperactivity disorder (ADHD), combined type; Superficial spreading melanoma (HCC) Start: 02-23-2022 Telephone encounter Lake coronel DO Work Phone: [facility] Comment on above: Results Start: 01-27-2022 End: 01-27-2022 Patient encounter procedure Karen Young PRODUCT FINISHER.CRAWLER TRACTOR OPERATOR Work Phone: OB/Gynecology Comment on above: Insertion of implant able subdermal contraceptive (Primary Dx); Screening for STD (sexually transmitted disease) Start: 01-06-2022 End: 01-06-2022 Patient encounter procedure Karen Young APRN.CRAWLER TRACTOR OPERATOR Work Phone: OB/Gynecology Comment on above: Dysmenorrhea (Primar y Dx); General counseling and advice for contraceptive management; Screen for STD (sexually transmitted disease) Start: 12-25-2021 End: 12-25-2021 Patient encounter procedure Rachana Miles APRN.CRAWLER TRACTOR OPERATOR Work Phone: [facility] Comment on above: Depression with anxi ety (Primary Dx); Attention deficit hyperactivity disorder (ADHD), combined type; Chondromalacia of right patella; Severe menstrual cramps; Menorrhagia with irregular cycle Start: 11-24-2021 End: 11-24-2021 Office outpatient visit 40 minutes Rachana Miles APRN.CRAWLER TRACTOR OPERATOR Work Phone: [facility] Comment on above: Depression with anxi ety (Primary Dx); Attention deficit hyperactivity disorder (ADHD), combined type; Chondromalacia of right patella Start: 11-10-2021 Refill Rachana hicks APRN.[facility] Work Phone: [facility] Comment on above: Refill Request Start: 10-17-2021 Telephone encounter Rachana Washington APRN.CRAWLER TRACTOR OPERATOR Work Phone: [facility] Comment on above: Question Start: 09-15-2021 Telephone encounter Rachana Washington APRN.CRAWLER TRACTOR OPERATOR Work Phone: [facility] Comment on above: Results Start: 09-15-2021 End: 09-15-2021 Subsequent hospital visit by physician Mri Radio [facility] (I-Stat/1.5t) Work Phone: Radiology Comment on above: Disorder of bone [M8 9.9] Start: 09-11-2021 End: 09-11-2021 Subsequent hospital visit by physician Xr [facility] Work Phone: Radiology Comment on above: Disorder of bone [M8 9.9] Start: 09-11-2021 End: 09-11-2021 Patient encounter procedure Rachana Ginger PRODUCT FINISHER.CRAWLER TRACTOR OPERATOR Work Phone: [facility] Comment on above: Patellar instability of right knee (Primary Dx); Altered gait; H/O fracture of patella; Disorder of bone; Chronic pain of right knee; Swelling of joint of right knee Start: 09-24-2020 End: 09-24-2020 Subsequent hospital visit by physician Xr [facility] Work Phone: Radiology Comment on above: Right knee injury, i nitial encounter [S89.91XA] Start: 12-04-2016 Patient encounter status Alfreda mccarty Ginger ARRIAZAN.CRAWLER TRACTOR OPERATOR Work Phone: [facility] Procedures Date Procedure Procedure Detail Performing Clinician Start: 04-12-2024 Radex spine lumbosac ral 2/3 views Rachana Miles APRN.CRAWLER TRACTOR OPERATOR Work Phone: Start: 04-12-2024 Urnls dip stick/tabl et rgnt auto w/o microscopy Rachana Miles PRODUCT FINISHER.CRAWLER TRACTOR OPERATOR Work Phone: Start: 09-02-2022 Radex elbow complete minimum 3 views Rachana Miles APRN.CRAWLER TRACTOR OPERATOR Work Phone: Start: 2022 STREP A MOLECULAR (POC) Leida Lopez PRODUCT FINISHER.CRAWLER TRACTOR OPERATOR Work Phone: Start: 06-26-2022 STREP A MOLECULAR (POC) Meghna Luciano PRODUCT FINISHER.CRAWLER TRACTOR OPERATOR Work Phone: Start: 01-27-2022 Urine test visual color cmprsn meths Karen Young PRODUCT FINISHER.CRAWLER TRACTOR OPERATOR Work Phone: Start: 09-15-2021 Mri any jt lower ext rem w/o contrast matrl Rachana Miles PRODUCT FINISHER.CRAWLER TRACTOR OPERATOR Work Phone: Start: 09-11-2021 Radiologic exam knee complete 4/more views Rachana Miles APRN.CRAWLER TRACTOR OPERATOR Work Phone: Start: 09-24-2020 Radiologic examinati on knee 3 views Heide Brantley PRODUCT FINISHER.CRAWLER TRACTOR OPERATOR Work Phone: Plan of Treatment Date Care Activity Detail Author Start: 12-04-2026 Urine microalbumin profile [facility] Start: 12-25-2024 Influenza vaccination Influenz a Vaccine (Season Ended) [facility] Start: 08-23-2024 End: 08-23-2024 Patient encounter procedure 08/23/2024 4:00 PM EDT Office Visit Family [facility] [address], [place] [id number] Rachana Miles APRN.CRAWLER TRACTOR OPERATOR [address] [place], [place] [id number] follow up 1 month [facility] Comment on above: follow up 1 month Start: 07-26-2024 End: 10-25-2024 QUANTITATIVE TOXICOLOGY PANEL, URINE [facility] Work Phone: Comment on above: Expected: 07/26/2024 , Expires: 10/25/2024 Start: 06-28-2024 Screening for malign ant neoplasm of cervix Cervical Cancer Screening [facility] Start: 12-26-2023 Covid-19 Vaccine ( season) Covid-19 Vaccine ( season) [facility] Start: 12-26-[address] [facility] Start: 07-03-[address] [facility] Start: 07-03-2023 Radiography of ankle Ankle min 3 Vie ws [facility] Start: 07-03-2023 XR Ankle GE 3 Views [facility] Start: 07-03-2023 Plain X-ray of tibia and fibula Tibia & Fibula 2 Views [facility] Start: 07-03-2023 XR Tibia and Fibula 2 Views [facility] Start: 04-26-2023 Behavioral Health Screening Behavioral Health Screening [facility] Start: 04-26-2023 Depression Assessment Depression Ass essment [facility] Start: 01-27-2023 CHLAMYDIA SCREENING (18-24) CHLAMYDIA SCREENING (18-24) [facility] Start: 01-27-2023 GC (GONORRHEA) SCREENING (18-24) GC (GONORRHEA) SCREENING (18-24) [facility] Start: 01-27-2023 Screening for Chlamy amy trachomatis Chlamydia Screening (18-24) [facility] Start: 12-25-2022 Covid-19 Vaccine ( season) Covid-19 Vaccine ( season) [facility] Start: 12-25-2022 Influenza vaccination Influenza Vacc ine (#1) [facility] Start: 10-23-2022 Influenza vaccination INFLUENZA (#1) [facility] Comment on above: Postponed from 12/25 (Declined at this time) Start: 04-26-2022 [facility] Start: 01-06-2022 End: 03-08-2022 Chlamydia trachomatis+Neisseria gonorrhoeae DNA [Presence] in Urine by PETE with probe detection GC/CHLAMYDIA AMPLIF, URINE Microbiology Routine Screen for STD (sexually transmitted disease) Expected: 01/06/2022, Expires: 03/08/2022 [facility] Work Phone: Comment on above: Expected: 01/06/2022 , Expires: 03/08/2022 Start: 12-25-2021 Influenza vaccination [facility] Start: 09-30-2021 COVID-19 VACCINE (3 - Booster for Pfizer series) COVID-19 VACCINE (3 - Booster for Pfizer series) [facility] Start: 06-28-2021 Anxiety Screening Anxiety Screening [facility] Start: 06-28-2021 CHLAMYDIA SCREENING (18-24) CHLAMYDIA SCREENING (18-24) [facility] Start: 06-28-2021 Depression Screening Depression Scre ening [facility] Start: 06-28-2021 GC (GONORRHEA) SCREENING (18-24) GC (GONORRHEA) SCREENING (18-24) [facility] Start: 06-28-2021 HEPATITIS C SCREENING HEPATITIS C [facility] Start: 06-28-2021 Hepatitis C screening Hepatitis C [facility] Start: 06-28-2021 HIV SCREENING HIV SCREENING [facility] Start: 06-28-2021 HIV screening HIV Screening [facility] Start: 06-27-2021 COVID-19 VACCINE (3 - Booster for Pfizer series) COVID-19 VACCINE (3 - Booster for Pfizer series) [facility] Start: 04-26-2021 DEPRESSION ASSESSMENT DEPRESSION ASS ESSMENT [facility] Start: 2019 Meningococcal B Vacc ine (1 of 2 - Standard) Meningococcal B Vaccine (1 of 2 - Standard) [facility] Start: 2019 Meningococcal B Vaccine: Consider Based On Risk (1 of 2 - Patient Seeks Protection) Meningococcal B Vaccine: Consider Based On Risk (1 of 2 - Patient Seeks Protection) [facility] Start: 06-28-2017 PEDS TO ADULT TRANSITION ANNUAL ASSESSMENT PEDS TO ADULT TRANSITION ANNUAL ASSESSMENT [facility] Start: 2015 Adult depression screening assessment DEPRESSION SCREENING [facility] Start: 2015 PEDS TO ADULT TRANSITION INITIAL DISCUSSION PEDS TO ADULT TRANSITION INITIAL DISCUSSION [facility] Start: 06-28-2013 MENINGOCOCCAL B: Consider based on risk (1 of 2 - Risk Bexsero 2-dose series) MENINGOCOCCAL B: Consider based on risk (1 of 2 - Risk Bexsero 2-dose series) [facility] Chlamydia trachomatis+Neisseria gonorrhoeae DNA [Presence] in Urine by PETE with probe detection GC/CHLAMYDIA AMPLIF, URINE Microbiology Routine Screening for STD (sexually transmitted disease) 01/27/2022 10:16 AM EDT [facility] Work Phone: GROUP A STREPTOCOCCU S BY PCR GROUP A STREPTOCOCCUS BY PCR Lab Routine Sore throat 2022 2:00 PM EST [facility] Work Phone: Influenza virus A an d B RNA and SARS-CoV-2 (COVID-19) N gene panel - Respiratory specimen by PETE with probe detection COVID WITH FLUA+B, ROUTINE Microbiology Routine Sore throat Fatigue, unspecified type Other non-recurrent acute nonsuppurative otitis media of left ear Ordered: 2022 [facility] Work Phone: Comment on above: Ordered: 2022 NEXPLANON INSERTION NEXPLANON IN SERTION Procedures Routine Dysmenorrhea General counseling and advice for contraceptive management Ordered: 01/06/2022 [facility] Work Phone: Comment on above: Ordered: 01/06/2022 NEXPLANON INSERTION NEXPLANON IN SERTION Procedures Routine Insertion of implantable subdermal contraceptive Ordered: 01/27/2022 [facility] Work Phone: Comment on above: Ordered: 01/27/2022 Patient Education ED Ankle Sprain (Adult) [facility] Work Phone: Patient referral [facility] Work Phone: QUANT TOX PANEL QUANT TOX PANEL Lab Routine Encounter for drug screening 07/26/2024 6:50 PM EDT [facility] RAPID STREP TEST B/O RAPID STREP TEST B/O Lab Routine Sore throat Ordered: 2022 [facility] Work Phone: Comment on above: Ordered: 2022 Removal impacted cerumen irrigation/lvg unilat AMBULATORY EAR LAVAGE/IRRIGATION Procedures Routine Bilateral impacted cerumen Ordered: 09/05/2024 [facility] Work Phone: Comment on above: Ordered: 09/05/2024 SPECIMEN VALIDITY, URINE SPECIMEN VALIDITY, URINE Lab Routine Encounter for drug screening 07/26/2024 6:50 PM EDT [facility] TOXICOLOGY SCREEN, ROUTINE URINE TOXICOLOGY SCREEN, ROUTINE URINE Lab Routine Encounter for drug screening 07/26/2024 6:50 PM EDT [facility] End: 05-12-2025 XR Thoracic spine AP and Lateral and Swimmers XR THORACIC GENERAL 3V AP/LAT/SWIMMERS Radiology Routine Chronic bilateral thoracic back pain 1 Occurrences starting 04/12/2024 until 05/12/2025 [facility] Work Phone: Comment on above: 1 Occurrences starti ng 04/12/2024 until 05/12/2025 XR Thoracic spine AP and Lateral and Swimmers XR THORACIC GENERAL 3V AP/LAT/SWIMMERS Radiology Routine Chronic bilateral thoracic back pain 04/12/2024 12:55 PM EST [facility] c [facility] c [facility] Immunizations Immunization Date Immunization Notes Care Provider Fa reinier 02-23-2022 influenza virus vacc ine, unspecified formulation Tri Crowder PRODUCT FINISHER.CRAWLER TRACTOR OPERATOR Work Phone: [facility] 11-24-2019 meningococcal polysaccharide (groups A, C, Y and W-135) diphtheria toxoid conjugate vaccine (MCV4P) Rachana Ginger PRODUCT FINISHER.[facility] Work Phone: [facility] 06-21-2019 measles, mumps, rube lla, and varicella virus vaccine Rachana Ginger PRODUCT FINISHER.CRAWLER TRACTOR OPERATOR Work Phone: [facility] 02-22-2019 influenza, seasonal, injectable Rachana Ginger PRODUCT FINISHER.[facility] Work Phone: [facility] 02-22-2019 influenza virus vacc ine, unspecified formulation Rachana Ginger PRODUCT FINISHER.CRAWLER TRACTOR OPERATOR Work Phone: [facility] 01-25-2019 Influenza, injectabl e, Madin Justina Canine Kidney, preservative free, quadrivalent Rachana Ginger PRODUCT FINISHER.[facility] Work Phone: [facility] Work Phone: 06-14-2017 Human Papillomavirus 9-valent vaccine Rachana Ginger PRODUCT FINISHER.[facility] Work Phone: [facility] 03-11-2017 influenza, injectabl e, quadrivalent, contains preservative Rachana Ginger PRODUCT FINISHER.[facility] Work Phone: [facility] 12-04-2016 Human Papillomavirus 9-valent vaccine Rachana Ginger PRODUCT FINISHER.[facility] Work Phone: [facility] 12-04-2016 meningococcal polysaccharide (groups A, C, Y and W-135) diphtheria toxoid conjugate vaccine (MCV4P) Rachana Ginger PRODUCT FINISHER.[facility] Work Phone: [facility] 12-04-2016 tetanus toxoid, redu rustam diphtheria toxoid, and acellular pertussis vaccine, adsorbed Rachana Ginger PRODUCT FINISHER.[facility] Work Phone: [facility] 12-27-2008 DTaP-hepatitis B and poliovirus vaccine Rachana Ginger PRODUCT FINISHER.CRAWLER TRACTOR OPERATOR Work Phone: [facility] Work Phone: 12-27-2008 measles, mumps and rubella virus vaccine Rachana Ginger PRODUCT FINISHER.[facility] Work Phone: [facility] Work Phone: 12-27-2008 varicella virus vaccine Jujoaquin Miles PRODUCT FINISHER.[facility] Work Phone: [facility] Work Phone: 02-17-2005 diphtheria, tetanus toxoids and acellular pertussis vaccine Rachanasruthi Martinezman PRODUCT FINISHER.CRAWLER TRACTOR OPERATOR Work Phone: [facility] 02-17-2005 haemophilus influenz ae type b vaccine, HbOC conjugate Rachana Ginger PRODUCT FINISHER.CRAWLER TRACTOR OPERATOR Work Phone: [facility] 02-17-2005 influenza virus vacc ine, unspecified formulation Rachana Ginger PRODUCT FINISHER.[facility] Work Phone: [facility] 02-17-2005 pneumococcal conjuga te vaccine, 7 valent Rachana Martinezman PRODUCT FINISHER.[facility] Work Phone: [facility] 2003 DTaP-hepatitis B and poliovirus vaccine Rachana Ginger PRODUCT FINISHER.[facility] Work Phone: [facility] Work Phone: 2003 haemophilus influenz ae type b vaccine, HbOC conjugate Rachana Ginger PRODUCT FINISHER.[facility] Work Phone: [facility] Work Phone: 2003 pneumococcal conjuga te vaccine, 7 valent Rachanasruthi Martinezman PRODUCT FINISHER.[facility] Work Phone: [facility] Work Phone: 2003 poliovirus vaccine, inactivated Rachanasruthi Martinezman PRODUCT FINISHER.CRAWLER TRACTOR OPERATOR Work Phone: [facility] Work Phone: 2003 DTaP-hepatitis B and poliovirus vaccine Rachana Ginger PRODUCT FINISHER.[facility] Work Phone: [facility] Work Phone: 2003 haemophilus influenz ae type b vaccine, HbOC conjugate Rachana Ginger PRODUCT FINISHER.[facility] Work Phone: [facility] Work Phone: 2003 pneumococcal conjuga te vaccine, 7 valent Rachana Miles PRODUCT FINISHER.[facility] Work Phone: [facility] Work Phone: 2003 poliovirus vaccine, inactivated Rachana Miles PRODUCT FINISHER.CRAWLER TRACTOR OPERATOR Work Phone: [facility] Work Phone: 2003 measles, mumps and rubella virus vaccine Rachana Miles PRODUCT FINISHER.CRAWLER TRACTOR OPERATOR Work Phone: [facility] Work Phone: 2003 varicella virus vaccine Ju Miles PRODUCT FINISHER.[facility] Work Phone: [facility] Work Phone: 2003 DTaP-hepatitis B and poliovirus vaccine Rachana Miles PRODUCT FINISHER.[facility] Work Phone: [facility] Work Phone: 2003 poliovirus vaccine, inactivated Rachana Miles PRODUCT FINISHER.[facility] Work Phone: [facility] Work Phone: 2003 haemophilus influenz ae type b vaccine, HbOC conjugate Rachana Miles PRODUCT FINISHER.[facility] Work Phone: [facility] Work Phone: 2003 pneumococcal conjuga te vaccine, 7 valent Rachana Miles PRODUCT FINISHER.[facility] Work Phone: [facility] Work Phone: Payers Date Payer Category Payer Unknown 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 2024 Unknown [id number] 2023 Private Health Insurance [id number] 2023 Self-pay [id number] 2022 Unknown [id number] 2022 Private Health Insurance [id number] 2022 Unknown [id number] 2018 Private Health Insurance AETNA A ETNA CHOICE POS II [id number] 2018-Present [phone] [address] [place] [address] POS [id number] 2018 Private Health Insurance [id number] 2016 Medicaid [employer] [id number] 2016-Present [phone] [address] [place] [address] Medicaid [id number] 2016 Medicaid [id number] 2003 Unknown [id number] 2003 Unknown [id number] Unknown [id number] Social History Date Type Detail Facility [facility] Start: 09-24-2020 End: 09-11-2021 Alcohol intake Current non-drinker of alcohol (finding) [facility] Start: 2003 Sex Assigned At Female [facility] Start: 09-01-2021 End: 09-11-2021 Exposure to SARS-CoV-2 (event) Unable to assess [facility] Start: 08-25-2020 End: 02-26-2022 Exposure to SARS-CoV-2 (event) Not sure [facility] Start: 01-06-2022 End: 07-26-2024 Alcohol intake Current drinker of alcohol (finding) [facility] Start: 01-06-2022 End: 09-02-2022 Alcohol intake [facility] Work Phone: Tobacco smoking status No Smokin g Status Entered [facility] Start: 09-02-2022 End: 07-26-2024 Tobacco use panel [facility] Work Phone: Adult Depression Screening Assessment 2 [facility] Work Phone: Start: 07-10-2021 Gender identity Identifies as female gender (finding) [facility] Start: 07-10-2021 Sexual orientation Heterosexual (finding) [facility] Has the [employer], or [employer] threatened to shut off services in your home in past 12Mo No [facility] Are you now , , , , never or living with a partner? Living with partner [facility] How often to you hav e a drink containing alcohol? 2-3 time sa week [facility] How many standard dr inks containing alcohol do you have on a typical day? 1 or 2 [facility] How often do you hav e 6 or more drinks on 1 occasion? Never [facility] How hard is it for y ou to pay for the very basics like food, housing, medical care, and heating Not very hard [facility] Do you feel stress - tense, restless, nervous, or anxious, or unable to sleep at night because your mind is troubled all the time - these days [OSQ] Very much [facility] (I/We) worried wheladonna er (my/our) food would run out before (I/we) got money to buy more. Never true [facility] Start: 07-03-2023 Tobacco smoking status NHIS Unknown if ever smoked [facility] Do you belong to any clubs or organizations such as restorationist groups, unions, fraternal or athletic groups, or school groups? Yes [facility] Are you now , , , , never or living with a partner? Never [facility] How often to you hav e a drink containing alcohol? 4 or more times a week [facility] How many standard dr inks containing alcohol do you have on a typical day? 7 to 9 [facility] How often do you hav e 6 or more drinks on 1 occasion? Daily or almost daily [facility] Functional Status Date Assessment Result Facility 07-26-2024 Total score [AUDIT-C] 11 025 5:43 PM EDT User, [email or web address] [facility] 07-26-2024 Within the last year , have you been humiliated or emotionally abused in other ways by your partner or ex-partner? No 07/26/2024 5:43 PM EDT User, Mychart No [facility] 07-26-2024 Within the last year , have you been afraid of your partner or ex-partner? No 07/26/2024 5:43 PM EDT User, [email or web address] No [facility] 07-26-2024 Within the last year , have you been raped or forced to have any kind of sexual activity by your partner or ex-partner? No 07/26/2024 5:43 PM EDT User, Mychart No [facility] 07-26-2024 Within the last year , have you been kicked, hit, slapped, or otherwise physically hurt by your partner or ex-partner? No 07/26/2024 5:43 PM EDT User, Mychart No [facility] 07-26-2024 How often to you hav e a drink containing alcohol? 4 or more times a week 07/26/2024 5:43 PM EDT User, Mychart 4 or more times a week [facility] 07-26-[address] inks containing alcohol do you have on a typical day? 7 to 9 07/26/2024 5:43 PM EDT User, Mychart 7 to 9 [facility] 07-26-2024 How often do you hav e 6 or more drinks on 1 occasion? Daily or almost daily 07/26/2024 5:43 PM EDT User, Mychart Daily or almost daily [facility] 07-20-2014 Are you deaf, or do you have serious difficulty hearing No 07/20/2014 3:38 PM EDT Alma Chacon Cma No [facility] 07-20-2014 Are you blind, or do you have serious difficulty seeing, even when wearing glasses No 07/20/2014 3:38 PM EDT Alma Chacon Cma No [facility] 07-20-2014 Do you have serious difficulty walking or climbing stairs No 07/20/2014 3:38 PM EDT Alma Chacon Cma No [facility] 07-20-2014 Do you have difficul ty dressing or bathing No 07/20/2014 3:38 PM EDT Alma Chacon Cma No [facility] Mental Status Date Assessment Result Facility 07-20-2014 Because of a physica l, mental, or emotional condition, do you have serious difficulty concentrating, remembering, or making decisions No 07/20/2014 3:38 PM EDT Alma Chacon Cma No [facility] Clinical Notes 08-15-2013 to 09-05-2024 Rupinder Irvin APRN.CRAWLER TRACTOR OPERATOR - 09/05/2024 6:22 PM EDTHersJovita olivas APRN.CRAWLER TRACTOR OPERATOR - 07/26/2024 6:52 PM EDTPatient InstructionsKelly Douglas RT(Judy) - 04/12/2024 12:50 PM ESTPatient Instructions Note Date & Type Note Facility 09-05-2024 Note HNO ID: [id number] Author: RUPINDER IRVIN APRN.[facility] Service: ? Author Type: Nurse Practitioner Type: Progress Notes Filed: 09/05/2024 18:54 Note Text: [facility] Subjective Nury Javed is a 19 year old female. Patient presents with: Ear Problem: L ear pain feels clogged down into jaw x 3 days Bilat ears area impacted with wax 19 year old female with PMH insomnia, ADHD presents for ear complaints. Acute onset 3 days ago Left ear Feels clogged +pain +congestion +cough Denies fever or chills Denies skin rash or lesions. Denies cough Denies SOB The history is provided by the patient. No machinist/machine builder was used. Ear Problem There is pain in both ears. This is a new problem. The current episode started in the past 7 days. The problem occurs constantly. The problem has been gradually worsening. There has been no fever. The pain is at a severity of 5/10. The pain is moderate. Associated symptoms include coughing and rhinorrhea. Pertinent negatives include no abdominal pain, diarrhea, ear discharge, headaches, hearing loss, neck pain, rash, sore throat or vomiting. She has tried nothing for the symptoms. The treatment provided no relief. Her past medical history is significant for hearing loss. There is no history of a chronic ear infection or a tympanostomy tube. PAST MEDICAL HISTORY Diagnosis Date ADHD (attention deficit hyperactivity disorder) 12/08/2010 Insomnia 05/12/2013 NONE PAST SURGICAL HISTORY Procedure Laterality Date NEXPLANON INSERTION Left 01/27/2022 ALLERGIES Patient has no known allergies. MEDICATIONS DULoxetine (CYMBALTA) 60 mg capsule Take 1 capsule by mouth once daily. etonogestrel (NEXPLANON) subdermal implant 68 mg 1 Each by SUBDERMAL route as directed. amoxicillin-clavulanate potassium (AUGMENTIN) 875-125 mg per tablet Take 1 tablet by mouth two times a day for 7 days. FAMILY HISTORY Problem Relation Age of Onset None Mother None Father Social History Tobacco Use Smoking status: Never Smokeless tobacco: Never Vaping Use Vaping status: current everyday user Start date: 01/16/2020 Substances: Nicotine Substance Use Topics Alcohol use: Yes Alcohol/week: 1.0 standard drink of alcohol Types: 1 Cans of Beer (12oz) per week Drug use: Yes Types: Marijuana Comment: vape mostly, twice a day; marijuana cigarette a couple times a week Review of Systems Constitutional: Negative for activity change and appetite change. HENT: Positive for ear pain and rhinorrhea. Negative for ear discharge, hearing loss and sore throat. Eyes: Negative for pain, discharge and itching. Respiratory: Positive for cough. Gastrointestinal: Negative for abdominal pain, diarrhea and vomiting. Musculoskeletal: Negative for neck pain. Skin: Negative for rash. Allergic/Immunologic: Negative for environmental allergies and food allergies. Neurological: Negative for headaches. Hematological: Negative for adenopathy. Does not bruise/bleed easily. Psychiatric/Behavioral: Negative for agitation and behavioral problems. Objective BP 118/74 Pulse (!) 56 Temp 37.1 ?C (98.7 ?F) Resp 20 Wt 64 kg (141 lb 1.5 oz) LMP 08/23/2024 (Exact Date) SpO2 100% Physical Exam Vitals and nursing note reviewed. Constitutional: General: She is not in acute distress. Appearance: Normal appearance. She is normal weight. She is not ill-appearing, toxic-appearing or diaphoretic. HENT: Head: Normocephalic and atraumatic. Right Ear: Ear canal and external ear normal. Left Ear: Ear canal and external ear normal. Ears: Comments: B/L ears with impacted cerumen Nursing staff irrigates (please see their documentation) On re-exam, bilateral cerumen impaction resolves Left TM erythematous and bulging Nose: Congestion present. No rhinorrhea. Mouth/Throat: Mouth: Mucous membranes are moist. Pharynx: Posterior oropharyngeal erythema present. No oropharyngeal exudate. Eyes: General: Right eye: No discharge. Left eye: No discharge. Extraocular Movements: Extraocular movements intact. Conjunctiva/sclera: Conjunctivae normal. Pupils: Pupils are equal, round, and reactive to light. Cardiovascular: Rate and Rhythm: Normal rate and regular rhythm. Pulses: Normal pulses. Heart sounds: Normal heart sounds. No murmur heard. No friction rub. Pulmonary: Effort: Pulmonary effort is normal. No respiratory distress. Breath sounds: Normal breath sounds. No stridor. No wheezing, rhonchi or rales. Chest: Chest wall: No tenderness. Abdominal: General: Abdomen is flat. There is no distension. Palpations: Abdomen is soft. There is no mass. Tenderness: There is no abdominal tenderness. There is no right CVA tenderness, left CVA tenderness, guarding or rebound. Hernia: No hernia is present. Musculoskeletal: General: No swelling, tenderness, deformity or signs of injury. Normal range of motion. Cervical ba (more content not included)... [facility] 09-05-2024 History of Presen t illness Narrative [facility] Subjective Nurysuni Javed is a 19 year old female. Patient presents with: Ear Problem: L ear pain feels clogged down into jaw x 3 days Bilat ears area impacted with wax 19 year old female with PMH insomnia, ADHD presents for ear complaints. Acute onset 3 days ago Left ear Feels clogged +pain +congestion +cough Denies fever or chills Denies skin rash or lesions. Denies cough Denies SOB The history is provided by the patient. No machinist/machine builder was used. Ear Problem There is pain in both ears. This is a new problem. The current episode started in the past 7 days. The problem occurs constantly. The problem has been gradually worsening. There has been no fever. The pain is at a severity of 5/10. The pain is moderate. Associated symptoms include coughing and rhinorrhea. Pertinent negatives include no abdominal pain, diarrhea, ear discharge, headaches, hearing loss, neck pain, rash, sore throat or vomiting. She has tried nothing for the symptoms. The treatment provided no relief. Her past medical history is significant for hearing loss. There is no history of a chronic ear infection or a tympanostomy tube. PAST MEDICAL HISTORY Diagnosis Date ADHD (attention deficit hyperactivity disorder) 12/08/2010 Insomnia 05/12/2013 NONE PAST SURGICAL HISTORY Procedure Laterality Date NEXPLANON INSERTION Left 01/27/2022 ALLERGIES Patient has no known allergies. MEDICATIONS DULoxetine (CYMBALTA) 60 mg capsule Take 1 capsule by mouth once daily. etonogestrel (NEXPLANON) subdermal implant 68 mg 1 Each by SUBDERMAL route as directed. amoxicillin-clavulanate potassium (AUGMENTIN) 875-125 mg per tablet Take 1 tablet by mouth two times a day for 7 days. FAMILY HISTORY Problem Relation Age of Onset None Mother None Father Social History Tobacco Use Smoking status: Never Smokeless tobacco: Never Vaping Use Vaping status: current everyday user Start date: 01/16/2020 Substances: Nicotine Substance Use Topics Alcohol use: Yes Alcohol/week: 1.0 standard drink of alcohol Types: 1 Cans of Beer (12oz) per week Drug use: Yes Types: Marijuana Comment: vape mostly, twice a day; marijuana cigarette a couple times a week Review of Systems Constitutional: Negative for activity change and appetite change. HENT: Positive for ear pain and rhinorrhea. Negative for ear discharge, hearing loss and sore throat. Eyes: Negative for pain, discharge and itching. Respiratory: Positive for cough. Gastrointestinal: Negative for abdominal pain, diarrhea and vomiting. Musculoskeletal: Negative for neck pain. Skin: Negative for rash. Allergic/Immunologic: Negative for environmental allergies and food allergies. Neurological: Negative for headaches. Hematological: Negative for adenopathy. Does not bruise/bleed easily. Psychiatric/Behavioral: Negative for agitation and behavioral problems. Objective BP 118/74 Pulse (!) 56 Temp 37.1 C (98.7 F) Resp 20 Wt 64 kg (141 lb 1.5 oz) LMP 08/23/2024 (Exact Date) SpO2 100% Physical Exam Vitals and nursing note reviewed. Constitutional: General: She is not in acute distress. Appearance: Normal appearance. She is normal weight. She is not ill-appearing, toxic-appearing or diaphoretic. HENT: Head: Normocephalic and atraumatic. Right Ear: Ear canal and external ear normal. Left Ear: Ear canal and external ear normal. Ears: Comments: B/L ears with impacted cerumen Nursing staff irrigates (please see their documentation) On re-exam, bilateral cerumen impaction resolves Left TM erythematous and bulging Nose: Congestion present. No rhinorrhea. Mouth/Throat: Mouth: Mucous membranes are moist. Pharynx: Posterior oropharyngeal erythema present. No oropharyngeal exudate. Eyes: General: Right eye: No discharge. Left eye: No discharge. Extraocular Movements: Extraocular movements intact. Conjunctiva/sclera: Conjunctivae normal. Pupils: Pupils are equal, round, and reactive to light. Cardiovascular: Rate and Rhythm: Normal rate and regular rhythm. Pulses: Normal pulses. Heart sounds: Normal heart sounds. No murmur heard. No friction rub. Pulmonary: Effort: Pulmonary effort is normal. No respiratory distress. Breath sounds: Normal breath sounds. No stridor. No wheezing, rhonchi or rales. Chest: Chest wall: No tenderness. Abdominal: General: Abdomen is flat. There is no distension. Palpations: Abdomen is soft. There is no mass. Tenderness: There is no abdominal tenderness. There is no right CVA tenderness, left CVA tenderness, guarding or rebound. Hernia: No hernia is present. Musculoskeletal: General: No swelling, tenderness, deformity or signs of injury. Normal range of motion. Cervical back: Normal range of motion and neck supple. No rigidity. Right lower leg: No edema. Left lower leg: No edema. Lymphadenopathy: Cervical: Cervical adenopathy present. Skin: General: Skin is warm and dry. Coloration: Skin is not jaundiced or pale. Findings: No bruising, erythema, lesion or rash. Neurological: General: No focal deficit present. Mental Status: She is alert and oriented to person, place, and time. Cranial Nerves: No cranial nerve deficit. Sensory: No sensory deficit. Motor: No weakness. Coordination: Coordination normal. Gait: Gait normal. Psychiatric: Mood and Affect: Mood normal. Behavior: Behavior normal. Thought Content: Thought content normal. Judgment: Judgment normal. ASSESSMENT/PLAN: 1. Bilateral impacted cerumen - ICD9: 380.4, ICD10: H61.23 (primary diagnosis) Initial visualization - AMBULATORY EAR LAVAGE/IRRIGATION-performed by nursing staff See their note Tolerated well 2. Acute otitis media, left - ICD9: 382.9, ICD10: H66.92 - Will begin treatment with as per antibiotic as written, see orders - The patient should also be given OTC cough and cold meds as needed, warm salt water gargles, throat lozenges and/or OTC throat spray as needed, and nasal saline gtts and suction prn for the first 5-7 days of treatment. - Supportive care with plenty of fluids, rest, and analgesia prn. - Follow up in 3-5 days if symptoms persist or worsen. Rupinder Irvin APRN.CRAWLER TRACTOR OPERATOR MDM Procedures documented in this encounter [facility] 07-26-2024 Note HNO ID: [id number] Author: JOVITA ALVAREZ APRN.CRAWLER TRACTOR OPERATOR Service: ? Author Type: Nurse Practitioner Type: Progress Notes Filed: 07/26/2024 18:59 Note Text: CC: Patient presents with: Discussion: Restarting vyvanse HPI The patient consented to the use of [employer] software for draft documentation of the visit consistent with [facility]?s Notice of Privacy Practices. Nury is a 19-year-old female, with a history of ADHD, presenting for a Vyvanse refill. 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 She denies any issues at home related to being off the medication. She is currently taking duloxetine and denies any side effects from Vyvanse when previously taken, stating it was the most effective medication for her ADHD. She also reports a recent onset of cough and congestion, starting a few days ago, initially presenting as a sore throat. Denies fever, chills, SOB, wheezing, headache. She vapes nicotine and smokes marijuana, using a vaping pen about twice a day and smoking a blunt approximately once a week. She has been trying to reduce vaping due to throat irritation. Review of Systems See HPI PAST MEDICAL HISTORY Diagnosis Date ADHD (attention deficit hyperactivity disorder) 12/08/2010 Insomnia 05/12/2013 NONE PAST SURGICAL HISTORY Procedure Laterality Date NEXPLANON INSERTION Left 01/27/2022 ALLERGIES Patient has no known allergies. MEDICATIONS DULoxetine (CYMBALTA) 60 mg capsule Take 1 capsule by mouth once daily. etonogestrel (NEXPLANON) subdermal implant 68 mg 1 Each by SUBDERMAL route as directed. FAMILY HISTORY Problem Relation Age of Onset None Mother None Father Social History Tobacco Use Smoking status: Never Smokeless tobacco: Never Vaping Use Vaping status: current everyday user Start date: 01/16/2020 Substances: Nicotine Substance Use Topics Alcohol use: Yes Alcohol/week: 1.0 standard drink of alcohol Types: 1 Cans of Beer (12oz) per week Drug use: Yes Types: Marijuana Comment: vape mostly, twice a day; marijuana cigarette a couple times a week BP 126/84 Pulse 64 Temp 36.7 ?C (98 ?F) (Temporal) Resp 14 Wt 59.4 kg (130 lb 15.3 oz) LMP 01/23/2022 SpO2 98% Physical Exam Vitals reviewed. Constitutional: Appearance: Normal appearance. HENT: Head: Normocephalic and atraumatic. Nose: Nose normal. Mouth/Throat: Mouth: Mucous membranes are moist. Pharynx: Oropharynx is clear. Eyes: Conjunctiva/sclera: Conjunctivae normal. Cardiovascular: Rate and Rhythm: Normal rate and regular rhythm. Heart sounds: Normal heart sounds. No murmur heard. Pulmonary: Effort: Pulmonary effort is normal. Breath sounds: Normal breath sounds. No wheezing, rhonchi or rales. Lymphadenopathy: Cervical: No cervical adenopathy. Skin: General: Skin is warm and dry. Neurological: Mental Status: She is alert. Psychiatric: Attention and Perception: Attention normal. Mood and Affect: Affect normal. Mood is anxious. Speech: Speech normal. Behavior: Behavior is hyperactive. Thought Content: Thought content normal. Judgment: Judgment normal. Assessment/Plan 1. Attention deficit hyperactivity disorder (ADHD), combined type (F90.2) Previously managed with Vyvanse, which was effective without side effects. Has been off medication for nearly two years, leading to worsening symptoms, particularly at work where focus is critical. - Ordered urine drug screen prior to restarting Vyvanse. - Will communicate with primary care provider, Naty Miles, regarding today's visit and drug test results. - Schedule a follow-up appointment with Naty Miles in one month to discuss ongoing management. 2. Marijuana use (F12.90) Patient reports using marijuana infrequently, approximately once a week, and vaping marijuana twice a day. 3. Encounter for drug screening (Z02.83) Required prior to restarting Vyvanse. Urine drug screen ordered and sample to be provided before leaving the clinic. 4. Viral URI (J06.9) Onset of symptoms a few days ago, including sore throat and congestion. Lungs clear on auscultation, throat examination unremarkable. - Advised use of wfbz-qxe-oghurqr cold medications. - Symptoms expected to resolve in a few days. Prescription instructions reviewed with patient as applicable. Potential red flag symptoms discussed with the patient. Reviewed appropriate action plan to take if red flag symptoms occur. Patient agreeable to treatment plan. I spent a total of 30 minutes on the date of the service which included preparing to see the patient, ddkt-gd-vbiq patient care, completing clinical documentation, performing a medically appropriate examination, counseling and educating the patient/family/caregiver, and ordering medications, tests, or procedures. Jovita Alvarez, PRODUCT FINISHER.[facility] Medical Deci (more content not included)... [facility] 07-26-2024 History of Presen t illness Narrative CC: Patient presents with: Discussion: Restarting vyvanse HPI The patient consented to the use of HomeLight software for draft documentation of the visit consistent with [facility] s Notice of Privacy Practices. Nury is a 19-year-old female, with a history of ADHD, presenting for a Vyvanse refill. 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 She denies any issues at home related to being off the medication. She is currently taking duloxetine and denies any side effects from Vyvanse when previously taken, stating it was the most effective medication for her ADHD. She also reports a recent onset of cough and congestion, starting a few days ago, initially presenting as a sore throat. Denies fever, chills, SOB, wheezing, headache. She vapes nicotine and smokes marijuana, using a vaping pen about twice a day and smoking a blunt approximately once a week. She has been trying to reduce vaping due to throat irritation. Review of Systems See HPI PAST MEDICAL HISTORY Diagnosis Date ADHD (attention deficit hyperactivity disorder) 12/08/2010 Insomnia 05/12/2013 NONE PAST SURGICAL HISTORY Procedure Laterality Date NEXPLANON INSERTION Left 01/27/2022 ALLERGIES Patient has no known allergies. MEDICATIONS DULoxetine (CYMBALTA) 60 mg capsule Take 1 capsule by mouth once daily. etonogestrel (NEXPLANON) subdermal implant 68 mg 1 Each by SUBDERMAL route as directed. FAMILY HISTORY Problem Relation Age of Onset None Mother None Father Social History Tobacco Use Smoking status: Never Smokeless tobacco: Never Vaping Use Vaping status: current everyday user Start date: 01/16/2020 Substances: Nicotine Substance Use Topics Alcohol use: Yes Alcohol/week: 1.0 standard drink of alcohol Types: 1 Cans of Beer (12oz) per week Drug use: Yes Types: Marijuana Comment: vape mostly, twice a day; marijuana cigarette a couple times a week BP 126/84 Pulse 64 Temp 36.7 C (98 F) (Temporal) Resp 14 Wt 59.4 kg (130 lb 15.3 oz) LMP 01/23/2022 SpO2 98% Physical Exam Vitals reviewed. Constitutional: Appearance: Normal appearance. HENT: Head: Normocephalic and atraumatic. Nose: Nose normal. Mouth/Throat: Mouth: Mucous membranes are moist. Pharynx: Oropharynx is clear. Eyes: Conjunctiva/sclera: Conjunctivae normal. Cardiovascular: Rate and Rhythm: Normal rate and regular rhythm. Heart sounds: Normal heart sounds. No murmur heard. Pulmonary: Effort: Pulmonary effort is normal. Breath sounds: Normal breath sounds. No wheezing, rhonchi or rales. Lymphadenopathy: Cervical: No cervical adenopathy. Skin: General: Skin is warm and dry. Neurological: Mental Status: She is alert. Psychiatric: Attention and Perception: Attention normal. Mood and Affect: Affect normal. Mood is anxious. Speech: Speech normal. Behavior: Behavior is hyperactive. Thought Content: Thought content normal. Judgment: Judgment normal. Assessment/Plan 1. Attention deficit hyperactivity disorder (ADHD), combined type (F90.2) Previously managed with Vyvanse, which was effective without side effects. Has been off medication for nearly two years, leading to worsening symptoms, particularly at work where focus is critical. - Ordered urine drug screen prior to restarting Vyvanse. - Will communicate with primary care provider, Naty Miles, regarding today's visit and drug test results. - Schedule a follow-up appointment with Naty Miles in one month to discuss ongoing management. 2. Marijuana use (F12.90) Patient reports using marijuana infrequently, approximately once a week, and vaping marijuana twice a day. 3. Encounter for drug screening (Z02.83) Required prior to restarting Vyvanse. Urine drug screen ordered and sample to be provided before leaving the clinic. 4. Viral URI (J06.9) Onset of symptoms a few days ago, including sore throat and congestion. Lungs clear on auscultation, throat examination unremarkable. - Advised use of uahq-rfy-axxjygt cold medications. - Symptoms expected to resolve in a few days. Prescription instructions reviewed with patient as applicable. Potential red flag symptoms discussed with the patient. Reviewed appropriate action plan to take if red flag symptoms occur. Patient agreeable to treatment plan. I spent a total of 30 minutes on the date of the service which included preparing to see the patient, cuhs-gq-yrtu patient care, completing clinical documentation, performing a medically appropriate examination, counseling and educating the patient/family/caregiver, and ordering medications, tests, or procedures. Jovita Alvarez APRN.VER[facility]ICA Medical Decision Making: Problems: Low: Acute, uncomplicated illness or injury Moderate: 1+ chronic illnesses with change Data: Unique test(s) ordered: 1 Risk: Moderate: Moderate risk from testing/treatment Medical Decision Making Level: 4 - Moderate documented in this encounter [facility] 07-26-2024 Instructions Jovita Alvarez APRN.CRAWLER TRACTOR OPERATOR - 07/26/2024 6:45 PM EDT We discussed your ADHD and Vyvanse prescription: - You have been off Vyvanse for some times now and are experiencing worsening ADHD symptoms, particularly at work. - I ordered a urine drug test today, which is required before starting a controlled substance. The results should be available within 1-2 days. - I will send a message to your primary care provider, Naty Miles, to inform her of today s visit and the drug test results. She will manage your Vyvanse prescription. - I recommend scheduling a 1-month follow-up appointment with Naty to ensure continuity of care. We discussed your cold symptoms: - Your symptoms, including sore throat and congestion, are likely due to a cold. - You may use ooyg-vpk-efekdqh cold medications to manage your symptoms. - These symptoms should improve within a few days. documented in this encounter [facility] 04-12-2024 History of Presen t illness Narrative Radiology Service Progress Note PATIENT NAME: Nury Javed DATE OF SERVICE: April 12, 2024 TIME: 12:53 PM PATIENT IDENTITY VERIFICATION COMPLETED USING TWO (2) IDENTIFIERS: Name and Date of confirmed by patient verbally. FALL SCREENING: Has the patient had 2 falls in the last year or 1 fall with injury or currently using an Ambulatory Assistive Device (Walker, Cane, Wheelchair, Crutches, etc.)? No PATIENT GENDER DATA: Female. status: : No status: NO. PATIENT RELEVANT IMPLANT DATA REVIEWED: Yes PATIENT PRESENTS WITH AN IMPLANTABLE OR ATTACHED SENIOR COPYWRITER: No RADIOLOGY DEPARTMENT: General X-ray: Exam(s) Completed: Spine X-Ray(s): Thoracic and Lumbar AP / LAT / L5-S1 PERIPHERAL IV DATA: Not applicable SIGNED BY: RT Brayden(R) April 12, 2024 12:53 PM documented in this encounter [facility] 04-12-2024 Note HNO ID: [id number] Author: KELLY DOUGLAS RT(R) Service: ? Author Type: Qa Engineer Type: Progress Notes Filed: 04/12/2024 12:53 Note Text: Radiology Service Progress Note PATIENT NAME: Nury Javed DATE OF SERVICE: April 12, 2024 TIME: 12:53 PM PATIENT IDENTITY VERIFICATION COMPLETED USING TWO (2) IDENTIFIERS: Name and Date of confirmed by patient verbally. FALL SCREENING: Has the patient had 2 falls in the last year or 1 fall with injury or currently using an Ambulatory Assistive Device (Walker, Cane, Wheelchair, Crutches, etc.)? No PATIENT GENDER DATA: Female. status: : No status: NO. PATIENT RELEVANT IMPLANT DATA REVIEWED: Yes PATIENT PRESENTS WITH AN IMPLANTABLE OR ATTACHED SENIOR COPYWRITER: No RADIOLOGY DEPARTMENT: General X-ray: Exam(s) Completed: Spine X-Ray(s): Thoracic and Lumbar AP / LAT / L5-S1 PERIPHERAL IV DATA: Not applicable SIGNED BY: RT Brayden(R) April 12, 2024 12:53 PM [facility] 04-12-2024 Instructions Rachana Miles APRN.CNP - 04/12/2024 12:26 PM EST Schedule with general surgery. Have the xrays of your back completed. documented in this encounter [facility] 04-12-2024 Note HNO ID: [id number] Author: RACHANA MILES APRN.CNP Service: ? Author Type: Nurse Practitioner Type: Progress Notes Filed: 04/12/2024 12:41 Note Text: Chief Complaint Patient presents with: Follow Up: Anxiety, depression and ADHD, not taking vyvanse, pt reports she lost her ss card and requesting a letter signed stating she was seen in office today. Cyst: Tailbone HPI Nury Javed is a 18 year old female who presents here today for Above Complaints.. Anxiety/depression-Cymbalta 60mg daily. Is working well for her anxiety/depression sx. ADHD-stopped taking her Vyvanse. Doesn't want to restart this until she gets a job again. Doesn't notice the ADHD when she's unemployed. Tailbone cyst-has had it for quite a while, has recently started hurting again. Is not draining, no redness or warmth. Mid lower back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 history of traumatic fracture Chronic pain of right knee Swelling of joint of right knee Effusion of lower leg joint [facility] Patellar instability of right knee- Primary Other joint derangement, not elsewhere classified, lower leg Altered gait Abnormality of gait H/O fracture of patella Personal history of traumatic fracture [facility]* Diagnosis Attention deficit hyperactivity disorder (ADHD), combined type [facility]* Diagnosis Depression with anxiety- Primary Dysthymic disorder Attention deficit hyperactivity disorder (ADHD), combined type Chondromalacia of right patella Chondromalacia of patella [facility] Diagnosis Depression with anxiety- Primary Dysthymic disorder Attention deficit hyperactivity disorder (ADHD), combined type Chondromalacia of right patella Chondromalacia of patella Severe menstrual cramps Menorrhagia with irregular cycle Excessive or frequent menstruation [facility] Diagnosis Dysmenorrhea- Primary General counseling and advice for contraceptive management Other general counseling and advice for contraceptive management Screen for STD (sexually transmitted disease) Screening examination for venereal disease [facility] Diagnosis Insertion of implantable subdermal contraceptive- Primary Screening for STD (sexually transmitted disease) Screening examination for venereal disease [facility] Diagnosis Atypical nevus of right thigh- Primary Superficial spreading melanoma (HCC) Melanoma of skin, site unspecified [facility] Diagnosis Depression with anxiety- Primary Dysthymic disorder Attention deficit hyperactivity disorder (ADHD), combined type Superficial spreading melanoma (HCC) Melanoma of skin, site unspecified [facility]* Diagnosis Attention deficit hyperactivity disorder (ADHD), combined type [facility]* Diagnosis Sore throat- Primary Acute pharyngitis [facility]* Diagnosis Sore throat- Primary Acute pharyngitis Fatigue, unspecified type Other non-recurrent acute nonsuppurative otitis media of left ear [facility]* Diagnosis Depression with anxiety Dysthymic disorder [facility] Diagnosis Depression with anxiety- Primary Dysthymic disorder Cyst near coccyx Pilonidal cyst without mention of abscess documented in this encounter [facility] note* Diagnosis Depression with anxiety- Primary Dysthymic disorder Major depressive disorder with current active episode, unspecified depression episode severity, unspecified whether recurrent Attention deficit hyperactivity disorder (ADHD), combined type documented in this encounter [facility] note* Diagnosis Attention deficit hyperactivity disorder (ADHD), combined type documented in this encounter [facility] note* Diagnosis Depression with anxiety Dysthymic disorder Major depressive disorder with current active episode, unspecified depression episode severity, unspecified whether recurrent documented in this encounter [facility] noteNo assessment information availableWPro[facility] Work Phone: Evaluation note* Diagnosis Depression with anxiety Dysthymic disorder Major depressive disorder with current active episode, unspecified depression episode severity, unspecified whether recurrent documented in this encounter [facility] note* Diagnosis Disorder of bone Disorder of bone and cartilage, unspecified Patellar instability of right knee Other joint derangement, not elsewhere classified, lower leg Altered gait Abnormality of gait H/O fracture of patella Personal history of traumatic fracture Chronic pain of right knee Swelling of joint of right knee Effusion of lower leg joint documented in this encounter [facility] note* Diagnosis Right knee injury, initial encounter documented in this encounter [facility] note* Diagnosis Acute midline low back pain without sciatica- Primary Depression with anxiety Dysthymic disorder Major depressive disorder with current active episode, unspecified depression episode severity, unspecified whether recurrent Chronic bilateral thoracic back pain Cyst near tailbone Pilonidal cyst without mention of abscess Right flank pain Abdominal pain, unspecified site Acute midline low back pain without sciatica Chronic bilateral thoracic back pain documented in this encounter [facility] note* Diagnosis Acute midline low back pain without sciatica Chronic bilateral thoracic back pain documented in this encounter [facility] note* Diagnosis Attention deficit hyperactivity disorder (ADHD), combined type- Primary Marijuana use Cannabis abuse, unspecified Encounter for drug screening Other specified examination Viral URI Acute upper respiratory infections of unspecified site documented in this encounter [facility] note* Diagnosis Bilateral impacted cerumen- Primary Impacted cerumen Acute otitis media, left Unspecified otitis media documented in this encounter [facility] Discharge instructions No data available for this section [facility] Reason for referral (narrative)* Outpatient Procedure (Routine) - Pending Review Specialty Diagnoses / Procedures Referred By Contac t Referred To Contact [facility] Diagnoses Dysmenorrhea General counseling and advice for contraceptive management Procedures NEXPLANON INSERTION ETONOGESTREL IMPLANT SYSTEM INSERT DRUG IMPLANT DEVICE Karen Young APRN.CRAWLER TRACTOR OPERATOR [address] [place] [address] [facility] [address] [place] [address] Referral ID Status Reason Start Date Expiration Date Visits Requested Visits Authorized [id number] Pending Review Auto-Generat ed Referral 01/06/2022 01/06/2023 1 1 [facility] for referral (narrative)* Outpatient Procedure (Routine) - Pending Review Specialty Diagnoses / Procedures Referred By Trav t Referred To Contact [facility] Diagnoses Insertion of implantable subdermal contraceptive Procedures NEXPLANON INSERTION ETONOGESTREL IMPLANT SYSTEM INSERT DRUG IMPLANT DEVICE Karen Young APRN.CRAWLER TRACTOR OPERATOR [address] [place] [address] [facility] [address] [place] [address] Referral ID Status Reason Start Date Expiration Date Visits Requested Visits Authorized [id number] Pending Review Auto-Generat ed Referral 01/27/2022 01/27/2023 1 1 [facility] for referral (narrative)* Diagnostic Procedure Only (Routine) - Closed Specialty Diagnoses / Procedures Referred By Contac t Referred To Contact XR IMAGING Diagnoses Disorder of bone Patellar instability of right knee Altered gait H/O fracture of patella Chronic pain of right knee Swelling of joint of right knee Procedures XR KNEE INJURY 4V AP/LAT/OBLS RIGHT RADIOLOGIC EXAM KNEE COMPLETE 4/MORE VIEWS Rachana Miles APRN.CNP [address] [place] [address] [place] [address] Referral ID Status Reason Start Date Expiration Date V isits Requested Visits Authorized [id number] Closed Auto-Generate d Referral 09/11/2021 10/11/2022 1 1 [facility] for referral (narrative)* Diagnostic Procedure Only (Routine) - Closed Specialty Diagnoses / Procedures Referred By Trav ponce Referred To Contact XR IMAGING Diagnoses Acute midline low back pain without sciatica Procedures XR LUMBAR GENERAL 3V AP/LAT/L5-S1 RADEX SPINE LUMBOSACRAL 2/3 VIEWS Rachana Miles APRN.CRAWLER TRACTOR OPERATOR [address] [place] [address] [place] [address] Referral ID Status Reason Start Date Expiration Date V isits Requested Visits Authorized [id number] Closed Auto-Generate d Referral 04/12/2024 05/12/2025 1 1 [facility] for visit Narrative* Outpatient Procedure (Routine) - Closed Specialty Diagnoses / Procedures Referred By Trav t Referred To Contact [facility] Diagnoses Dysmenorrhea General counseling and advice for contraceptive management Encounter for initial prescription of implantable subdermal contraceptive Encounter for surveillance of implantable subdermal contraceptive Procedures NEXPLANON INSERTION ETONOGESTREL IMPLANT SYSTEM INSERT DRUG IMPLANT DEVICE REMOVAL NON-BIODEGRADABLE DRUG DELIVERY IMPLANT Karen Young APRN.CRAWLER TRACTOR OPERATOR [address] [place] [address] [facility] [address] [place] [address] Referral ID Status Reason Start Date Expiration Date V isits Requested Visits Authorized [id number] Closed Auto-Generate d Referral 01/14/2022 04/25/2022 1 1 [facility] for visit Narrative* Diagnostic Procedure Only (Routine) - Closed Specialty Diagnoses / Procedures Referred By Trav t Referred To Contact XR IMAGING Diagnoses Injury of left elbow, subsequent encounter Procedures XR ELBOW SPECIAL VIEWS AP/LAT/OTHER LEFT RADEX ELBOW COMPLETE MINIMUM 3 VIEWS Rachana Miles APRN.CRAWLER TRACTOR OPERATOR [address] [place] [address] [place] [address] Referral ID Status Reason Start Date Expiration Date V isits Requested Visits Authorized [id number] Closed Auto-Generate d Referral 09/02/2022 10/02/2023 1 1 [facility] for visit Narrative* Diagnostic Procedure Only (Routine) - Closed Specialty Diagnoses / Procedures Referred By Contac t Referred To Contact XR IMAGING Diagnoses Disorder of bone Patellar instability of right knee Altered gait H/O fracture of patella Chronic pain of right knee Swelling of joint of right knee Procedures XR KNEE INJURY 4V AP/LAT/OBLS RIGHT RADIOLOGIC EXAM KNEE COMPLETE 4/MORE VIEWS Rachana Miles, PRODUCT FINISHER.CRAWLER TRACTOR OPERATOR [address] [place] [address] [place] [address] Referral ID Status Reason Start Date Expiration Date V isits Requested Visits Authorized [id number] Closed Auto-Generate d Referral 09/11/2021 10/11/2022 1 1 [facility] for visit Narrative* Diagnostic Procedure Only (Routine) - Closed Specialty Diagnoses / Procedures Referred By Contac t Referred To Contact XR IMAGING Diagnoses Chronic bilateral thoracic back pain Procedures XR THORACIC GENERAL 3V AP/LAT/SWIMMERS RADEX SPINE THORACIC 3 VIEWS Rachana Miles, PRODUCT FINISHER.CRAWLER TRACTOR OPERATOR [address] [place] [address] [place] [address] Referral ID Status Reason Start Date Expiration Date V isits Requested Visits Authorized [id number] Closed Auto-Generate d Referral 04/12/2024 05/12/2025 1 1 [facility] Reason for Referral Specialty Diagnoses / Procedures Referred By Contac t Referred To Contact MR IMAGING Diagnoses Disorder of bone Patellar instability of right knee Altered gait H/O fracture of patella Chronic pain of right knee Swelling of joint of right knee Procedures MRI KNEE WO IVCON RT MRI ANY JT LOWER EXTREM W/O CONTRAST MATRL Rachana Miles, PRODUCT FINISHER.CRAWLER TRACTOR OPERATOR [address] [place] [address] Mr Imaging Referral ID Status Reason Start Date Expiration Date V isits Requested Visits Authorized [id number] Closed Auto-Generate d Referral 09/11/2021 10/11/2022 1 1 Specialty Diagnoses / Procedures Referred By Contac t Referred To Contact [facility] Diagnoses Disorder of bone Patellar instability of right knee Altered gait H/O fracture of patella Chronic pain of right knee Swelling of joint of right knee Procedures CONSULT TO PHYSICAL THERAPY PHYSICAL THERAPY EVALUATION HIGH COMPLEX 45 MINS Rachana Miles APRN.CRAWLER TRACTOR OPERATOR [address] [place] [address] [facility] [address] [place] [address] Referral ID Status Reason Start Date Expiration Date Visits Requested Visits Authorized [id number] Authorized Auto-Generat ed Referral 09/11/2021 04/25/2022 30 30 Specialty Diagnoses / Procedures Referred By Contac t Referred To Contact XR IMAGING Diagnoses Disorder of bone Patellar instability of right knee Altered gait H/O fracture of patella Chronic pain of right knee Swelling of joint of right knee Procedures XR KNEE INJURY 4V AP/LAT/OBLS RIGHT RADIOLOGIC EXAM KNEE COMPLETE 4/MORE VIEWS Rachana Miles, PRODUCT FINISHER.CRAWLER TRACTOR OPERATOR [address] [place] [address] X[facility] Imaging Referral ID Status Reason Start Date Expiration Date V isits Requested Visits Authorized [id number] Closed Auto-Generate d Referral 09/11/2021 10/11/2022 1 1 Specialty Diagnoses / Procedures Referred By Contac t Referred To Contact Orthopedics Diagnoses Patellar instability of right knee Altered gait H/O fracture of patella Procedures CONSULT TO ORTHOPAEDICS OFFICE/OUTPATIENT [facility] 60-74 MINUTES Leida Garcia, PRODUCT FINISHER.CRAWLER TRACTOR OPERATOR [address] [place] [address] Referral ID Status Reason Start Date Expiration Date Visits Requested Visits Authorized [id number] Pending Review PCP Requested Referral 09/17/2021 09/17/2022 1 1 Specialty Diagnoses / Procedures Referred By Contac t Referred To Contact Gynecology Diagnoses Severe menstrual cramps Menorrhagia with irregular cycle Procedures CONSULT TO GYNECOLOGY OFFICE/OUTPATIENT [facility] MDM 60-74 MINUTES Rachana Miles, PRODUCT FINISHER.CRAWLER TRACTOR OPERATOR [address] [place] [address] Referral ID Status Reason Start Date Expiration Date Visits Requested Visits Authorized [id number] Pending Review PCP Requested Referral Auto-Generate d Referral 12/25/2021 12/25/2022 1 1 Specialty Diagnoses / Procedures Referred By Contac t Referred To Contact Diagnoses Atypical nevus of right thigh Superficial spreading melanoma (HCC) Procedures REFERRAL DERMATOLOGY SURGERY OFFICE/OUTPATIENT [facility] MDM 60-74 MINUTES Lake Hunt DO [address] [place] [address] Referral ID Status Reason Start Date Expiration Date Visits Requested Visits Authorized [id number] Pending Review PCP Requested Referral 02/25/2022 02/25/2023 1 1 Specialty Diagnoses / Procedures Referred By Contac t Referred To Contact General Surgery Diagnoses Cyst near tailbone Procedures CONSULT TO GENERAL SURGERY OFFICE/OUTPATIENT [facility] MDM 60 MINUTES Rachana Miles, PRODUCT FINISHER.CRAWLER TRACTOR OPERATOR [address] [place] [address] Referral ID Status Reason Start Date Expiration Date Visits Requested Visits Authorized [id number] Authorized PCP Requested Referral 04/12/2025 1 1 Specialty Diagnoses / Procedures Referred By Contac t Referred To Contact XR IMAGING Diagnoses Chronic bilateral thoracic back pain Procedures XR THORACIC GENERAL 3V AP/LAT/SWIMMERS RADEX SPINE THORACIC 3 VIEWS Rachana Miles, PRODUCT FINISHER.CRAWLER TRACTOR OPERATOR [address] [place] [address] [place] [address] Referral ID Status Reason Start Date Expiration Date V isits Requested Visits Authorized [id number] Closed Auto-Generate d Referral 04/12/2024 05/12/2025 1 1 Specialty Diagnoses / Procedures Referred By Contac t Referred To Contact XR IMAGING Diagnoses Acute midline low back pain without sciatica Procedures XR LUMBAR GENERAL 3V AP/LAT/L5-S1 RADEX SPINE LUMBOSACRAL 2/3 VIEWS Rachana Miles, PRODUCT FINISHER.CRAWLER TRACTOR OPERATOR [address] [place] [address] [place] [address] Referral ID Status Reason Start Date Expiration Date V isits Requested Visits Authorized [id number] Closed Auto-Generate d Referral 04/12/2024 05/12/2025 1 1 Medications Administered Section Inactive Administered [...] Family History Records FoundNo Family History Records FoundNo Family History Records Found Advance Directives Advance Directive Response Recorded Date/ Time Living Will No July 03, 2023 3:53pm Power of Net Wpf Developer No July 02 3:53pm Chief Complaint and Reason for Visit Chief Complaint bilat akle injury Additional Source Comments Source Comments (unrecognize d section and content) In the event this informatio n is protected by the Federal Confidentiality of Alcohol and Drug Abuse Patient Records regulations: The Federal rules restrict any use of the information to criminally investigate or prosecute any alcohol or drug abuse patient.[facility] the event this information is protected by the Federal Confidentiality of Alcohol and Drug Abuse Patient Records regulations: The Federal rules restrict any use of the information to criminally investigate or prosecute any alcohol or drug abuse patient.[facility]In the event this information is protected by the Federal Confidentiality of Alcohol and Drug Abuse Patient Records regulations: The Federal rules restrict any use of the information to criminally investigate or prosecute any alcohol or drug abuse patient.[facility] HospitalIn the event this information is protected by the Federal Confidentiality of Alcohol and Drug Abuse Patient Records regulations: The Federal rules restrict any use of the information to criminally investigate or prosecute any alcohol or drug abuse patient.[facility] HospitalIn the event this information is protected by the Federal Confidentiality of Alcohol and Drug Abuse Patient Records regulations: The Federal rules restrict any use of the information to criminally investigate or prosecute any alcohol or drug abuse patient.[facility] HospitalIn the event this information is protected by the Federal Confidentiality of Alcohol and Drug Abuse Patient Records regulations: The Federal rules restrict any use of the information to criminally investigate or prosecute any alcohol or drug abuse patient.[facility] HospitalIn the event this information is protected by the Federal Confidentiality of Alcohol and Drug Abuse Patient Records regulations: The Federal rules restrict any use of the information to criminally investigate or prosecute any alcohol or drug abuse patient.[facility] the event this information is protected by the Federal Confidentiality of Alcohol and Drug Abuse Patient Records regulations: The Federal rules restrict any use of the information to criminally investigate or prosecute any alcohol or drug abuse patient.[facility] HospitalIn the event this information is protected by the Federal Confidentiality of Alcohol and Drug Abuse Patient Records regulations: The Federal rules restrict any use of the information to criminally investigate or prosecute any alcohol or drug abuse patient.[facility] HospitalIn the event this information is protected by the Federal Confidentiality of Alcohol and Drug Abuse Patient Records regulations: The Federal rules restrict any use of the information to criminally investigate or prosecute any alcohol or drug abuse patient.[facility] HospitalIn the event this information is protected by the Federal Confidentiality of Alcohol and Drug Abuse Patient Records regulations: The Federal rules restrict any use of the information to criminally investigate or prosecute any alcohol or drug abuse patient.[facility] HospitalIn the event this information is protected by the Federal Confidentiality of Alcohol and Drug Abuse Patient Records regulations: The Federal rules restrict any use of the information to criminally investigate or prosecute any alcohol or drug abuse patient.[facility] HospitalIn the event this information is protected by the Federal Confidentiality of Alcohol and Drug Abuse Patient Records regulations: The Federal rules restrict any use of the information to criminally investigate or prosecute any alcohol or drug abuse patient.[facility] HospitalIn the event this information is protected by the Federal Confidentiality of Alcohol and Drug Abuse Patient Records regulations: The Federal rules restrict any use of the information to criminally investigate or prosecute any alcohol or drug abuse patient.[facility] HospitalIn the event this information is protected by the Federal Confidentiality of Alcohol and Drug Abuse Patient Records regulations: The Federal rules restrict any use of the information to criminally investigate or prosecute any alcohol or drug abuse patient.[facility] HospitalIn the event this information is protected by the Federal Confidentiality of Alcohol and Drug Abuse Patient Records regulations: The Federal rules restrict any use of the information to criminally investigate or prosecute any alcohol or drug abuse patient.[facility] HospitalIn the event this information is protected by the Federal Confidentiality of Alcohol and Drug Abuse Patient Records regulations: The Federal rules restrict any use of the information to criminally investigate or prosecute any alcohol or drug abuse patient.[facility] HospitalIn the event this information is protected by the Federal Confidentiality of Alcohol and Drug Abuse Patient Records regulations: The Federal rules restrict any use of the information to criminally investigate or prosecute any alcohol or drug abuse patient.[facility] HospitalIn the event this information is protected by the Federal Confidentiality of Alcohol and Drug Abuse Patient Records regulations: The Federal rules restrict any use of the information to criminally investigate or prosecute any alcohol or drug abuse patient.[facility] HospitalIn the event this information is protected by the Federal Confidentiality of Alcohol and Drug Abuse Patient Records regulations: The Federal rules restrict any use of the information to criminally investigate or prosecute any alcohol or drug abuse patient.[facility] HospitalIn the event this information is protected by the Federal Confidentiality of Alcohol and Drug Abuse Patient Records regulations: The Federal rules restrict any use of the information to criminally investigate or prosecute any alcohol or drug abuse patient.[facility] HospitalIn the event this information is protected by the Federal Confidentiality of Alcohol and Drug Abuse Patient Records regulations: The Federal rules restrict any use of the information to criminally investigate or prosecute any alcohol or drug abuse patient.[facility] HospitalIn the event this information is protected by the Federal Confidentiality of Alcohol and Drug Abuse Patient Records regulations: The Federal rules restrict any use of the information to criminally investigate or prosecute any alcohol or drug abuse patient.[facility] HospitalIn the event this information is protected by the Federal Confidentiality of Alcohol and Drug Abuse Patient Records regulations: The Federal rules restrict any use of the information to criminally investigate or prosecute any alcohol or drug abuse patient.[facility] HospitalIn the event this information is protected by the Federal Confidentiality of Alcohol and Drug Abuse Patient Records regulations: The Federal rules restrict any use of the information to criminally investigate or prosecute any alcohol or drug abuse patient.[facility] HospitalIn the event this information is protected by the Federal Confidentiality of Alcohol and Drug Abuse Patient Records regulations: The Federal rules restrict any use of the information to criminally investigate or prosecute any alcohol or drug abuse patient.[facility] HospitalIn the event this information is protected by the Federal Confidentiality of Alcohol and Drug Abuse Patient Records regulations: The Federal rules restrict any use of the information to criminally investigate or prosecute any alcohol or drug abuse patient.[facility] HospitalIn the event this information is protected by the Federal Confidentiality of Alcohol and Drug Abuse Patient Records regulations: The Federal rules restrict any use of the information to criminally investigate or prosecute any alcohol or drug abuse patient.[facility] HospitalIn the event this information is protected by the Federal Confidentiality of Alcohol and Drug Abuse Patient Records regulations: The Federal rules restrict any use of the information to criminally investigate or prosecute any alcohol or drug abuse patient.[facility] Reason for Visit (unrecogniz ed section and content) Reason Comments Right Knee Pain x 1 year, fractured Specialty Diagnoses / Procedures Referred By Trav ponce Referred To Contact MR IMAGING Diagnoses Disorder of bone Patellar instability of right knee Altered gait H/O fracture of patella Chronic pain of right knee Swelling of joint of right knee Procedures MRI KNEE WO IVCON RT MRI ANY JT LOWER EXTREM W/O CONTRAST MATRL Rachana Miles, CARLOS ALBERTO.CRAWLER TRACTOR OPERATOR [address] [place] [address] Mr Imaging Referral ID Status Reason Start Date Expiration Date V isits Requested Visits Authorized [id number] Closed Auto-Generate d Referral 09/11/2021 10/11/2022 1 1 Reason Comments Results Reason Onset Date Comments Refill Request 11/10/2021 Reason Comments Medication Follow-up Reason Comments Medication Follow-up Reason Comments Menstrual Problem Specialty Diagnoses / Procedures Referred By Trav ponce Referred To Contact Gynecology Diagnoses Severe menstrual cramps Menorrhagia with irregular cycle Procedures CONSULT TO GYNECOLOGY OFFICE/OUTPATIENT [facility] MDM 60-74 MINUTES Rachana Miles, PRODUCT FINISHER.CRAWLER TRACTOR OPERATOR [address] [place] [address] Referral ID Status Reason Start Date Expiration Date Visits Requested Visits Authorized [id number] Pending Review PCP Requested Referral Auto-Generate d [...] Reason Comments Depression Reason Comments Medication Problem Reason Comments Follow Up Anxiety, depression and ADHD, not taking vyvanse, pt reports she lost her ss card and requesting a letter signed stating she was seen in office today. Cyst Tailbone Reason Comments Discussion Restarting vyvanse Reason Comments Ear Problem L ear pain feels candida gged down into jaw x 3 days Bilat ears area impacted with wax Care Teams (unrecognized sec tion and content) Sprinkler Inspector Relationship Specialty Start Date End Date Rachana Miles APRN.CRAWLER TRACTOR OPERATOR [address] [place] [address] PCP - General Family Practice 01/27/21 Sprinkler Inspector Relationship Specialty Start Date End Date Rachana Miles, PRODUCT FINISHER.CRAWLER TRACTOR OPERATOR [address] [place] [address] PCP - General Family Practice 01/27/21 Sprinkler Inspector Relationship Specialty Start Date End Date Rachana Miles, PRODUCT FINISHER.CRAWLER TRACTOR OPERATOR [address] [place] [address] PCP - General Family Practice 01/27/21 Sprinkler Inspector Relationship Specialty Start Date End Date Rachana Miles, PRODUCT FINISHER.CRAWLER TRACTOR OPERATOR [address] [place] [address] PCP - General Family Practice 01/27/21 Sprinkler Inspector Relationship Specialty Start Date End Date Rachana Miles, PRODUCT FINISHER.CRAWLER TRACTOR OPERATOR [address] [place] [address] PCP - General Family Practice 01/27/21 Sprinkler Inspector Relationship Specialty Start Date End Date Rachana Miles, PRODUCT FINISHER.CRAWLER TRACTOR OPERATOR [address] [place] [address] PCP - General Family Practice 01/27/21 Sprinkler Inspector Relationship Specialty Start Date End Date Rachana Miles, PRODUCT FINISHER.CRAWLER TRACTOR OPERATOR [address] [place] [address] PCP - General Family Practice 01/27/21 Sprinkler Inspector Relationship Specialty Start Date End Date Rachana Miles, PRODUCT FINISHER.CRAWLER TRACTOR OPERATOR [address] [place] [address] PCP - General Family Medicine 01/27/21 Sprinkler Inspector Relationship Specialty Start Date End Date Rachana Miles, PRODUCT FINISHER.CRAWLER TRACTOR OPERATOR [address] [place] [address] PCP - General Family Medicine 01/27/21 Sprinkler Inspector Relationship Specialty Start Date End Date GingerRachana, PRODUCT FINISHER.CRAWLER TRACTOR OPERATOR [address] [place] [address] PCP - General Family Medicine 01/27/21 Sprinkler Inspector Relationship Specialty Start Date End Date Rachana Miles, PRODUCT FINISHER.CRAWLER TRACTOR OPERATOR [address] [place] [address] PCP - General Family Medicine 01/27/21 Sprinkler Inspector Relationship Specialty Start Date End Date GingerRachana, PRODUCT FINISHER.CRAWLER TRACTOR OPERATOR [address] [place] [address] PCP - General Family Medicine 01/27/21 Sprinkler Inspector Relationship Specialty Start Date End Date GingerRachana, PRODUCT FINISHER.CRAWLER TRACTOR OPERATOR [address] [place] [address] PCP - General Family Medicine 01/27/21 Sprinkler Inspector Relationship Specialty Start Date End Date GingerRachana, PRODUCT FINISHER.CRAWLER TRACTOR OPERATOR [address] [place] [address] PCP - General Family Medicine 01/27/21 Sprinkler Inspector Relationship Specialty Start Date End Date GingerRachana, PRODUCT FINISHER.CRAWLER TRACTOR OPERATOR [address] [place] [address] PCP - General Family Medicine 01/27/21 Sprinkler Inspector Relationship Specialty Start Date End Date GingerRachana, PRODUCT FINISHER.CRAWLER TRACTOR OPERATOR [address] [place] [address] PCP - General Family Medicine 01/27/21 Sprinkler Inspector Relationship Specialty Start Date End Date Rachana Miles, PRODUCT FINISHER.CRAWLER TRACTOR OPERATOR [address] [place] [address] PCP - General Family Medicine 01/27/21 Team Status: Active Member Role Status Dates Dr. Arley Zhu III, MD Family Provider Active Rachana Miles MUSHROOM GROWING SUPERVISOR, MUSHROOM GROWING SUPERVISOR-C Primary Care Provider Active Team Status: Inactive Member Role Status Dates Rachana Miles MUSHROOM GROWING SUPERVISOR, MUSHROOM GROWING SUPERVISOR-C Primary Care Provider Active Dr. Buffy Marquez MD Emergency Provider Active Sprinkler Inspector Relationship Specialty Start Date End Date [facility], PRODUCT FINISHER.CRAWLER TRACTOR OPERATOR [address] [facility] [address] PCP - General Family Medicine 01/27/21 Sprinkler Inspector Relationship Specialty Start Date End Date Ginger, Rachana, PRODUCT FINISHER.CRAWLER TRACTOR OPERATOR [address] [facility] [address] PCP - General Family Medicine 01/27/21 Sprinkler Inspector Relationship Specialty Start Date End Date [facility], PRODUCT FINISHER.CRAWLER TRACTOR OPERATOR [address] [facility] [address] PCP - General Family Medicine 01/27/21 Sprinkler Inspector Relationship Specialty Start Date End Date Arley Zhu III, MD [place]WARD[place] ADDRESS PCP - General 03 11/07/20 Sprinkler Inspector Relationship Specialty Start Date End Date [facility], PRODUCT FINISHER.CRAWLER TRACTOR OPERATOR [address] [facility] [address] PCP - General Family Medicine 01/27/21 Leida Lopez, PRODUCT FINISHER.CRAWLER TRACTOR OPERATOR [address] [facility] [address] Auto Radiator Mechanic Family Medicine 04/03/24 Lake Hunt DO [address] [facility] [address] Auto Radiator Mechanic Family Medicine 04/03/24 Sprinkler Inspector Relationship Specialty Start Date End Date Rachana Miles, PRODUCT FINISHER.CRAWLER TRACTOR OPERATOR [address] [place] [address] PCP - General Family Medicine 01/27/21 Leida Lopez, PRODUCT FINISHER.CRAWLER TRACTOR OPERATOR [address] [place] [address] Auto Radiator Mechanic Family Medicine 04/03/24 Lake Hunt DO [address] [place] [address] [facility] 04/[facility]/24 Sprinkler Inspector Relationship Specialty Start Date End Date Rachana Miles, PRODUCT FINISHER.CRAWLER TRACTOR OPERATOR [address] [place] [address] PCP - General Family Medicine 01/27/21 Leida Lopez, PRODUCT FINISHER.CRAWLER TRACTOR OPERATOR [address] [place] [address] Auto Radiator Mechanic Family Medicine 04/03/24 Lake Hunt DO [address] [place] [address] Auto Radiator Mechanic Family Medicine 04/03/24 Sprinkler Inspector Relationship Specialty Start Date End Date Rachana Miles, PRODUCT FINISHER.CRAWLER TRACTOR OPERATOR [address] [place] [address] PCP - General Family Medicine 01/27/21 Leida Lopez, PRODUCT FINISHER.CRAWLER TRACTOR OPERATOR [address] [place] [address] Auto Radiator Mechanic Family Medicine 04/03/24 Lake Hunt DO [address] [place], [place] [address] Replaced By [facility] 04/03/24 Sprinkler Inspector Relationship Specialty Start Date End Date Rachana Miles APRN.CRAWLER TRACTOR OPERATOR [address] [place], [place] [address] PCP - General Family Medicine 01/27/21 Leida Lopez, PRODUCT FINISHER.CRAWLER TRACTOR OPERATOR [address] [place], [place] [address] Replaced By [facility] 04/03/24 Lake Hunt DO [address] [place], [place] [address] Replaced By [facility] 04/03/24 Care Team (unrecognized sect ion and content) Care Team Personnel Name: LAKE HUNT DO Member Role: Primary Care Physician Address: Address: [address] [place] [address]- Care Team Related Persons Name: ELIZABETH JULIEN Address: [address] [place] [address] Name: ELIZABETH JULIEN Address: [address] [address] INFORMATION SOURCE (unrecogn ized section and content) DATE CREATED AUTHOR 09/08/2022 [facility] ([place]) DATE CREATED AUTHOR AUTHOR'S ORGANIZ ATION 12/08/2023 [facility] DATE CREATED AUTHOR AUTHOR'S ORGANIZ ATION 09/07/2024 [facility] Goals (unrecognized section and content) Goals may be documented in a n alternate section FOR RECORDS PERTAINING TO PATIENTS WHO ARE [...] BE BASED ON THE PRIMARY CLINICAL RECORDS. [employer] [facility]. provides no warranty or guarantee of the accuracy or completeness of information in this document.
[2025-01-28 02:07] VITALS: BP 110/60; PULSE 79; RESP 18; TEMP 36.6; O2SAT 98
== END 2025-01-28 02:08 | disposition home or self-care (01) ==
PROVIDERS: Emergency Provider Emergency Medicine; Visit Provider Emergency Medicine
DX: S09.90XA Unspecified injury of head, initial encounter (principal); S50.02XA Contusion of left elbow, initial encounter; Y04.8XXA Assault by other bodily force, initial encounter
CPT/HCPCS: 70450; 73080; 99284